=== PATIENT | male | born 1930 | race African-American/Black ===

== ENCOUNTER 2016-07-12 22:53 | Inpatient (IN) | payer OTHER, BC ==
--- NOTE | 2016-07-13 01:39 | PDOC ---
History of Present Illness - History of Present Illness Initial Comments: 07/13/16 01:58 The patient is an 85 year old male with a past medical hx of CVA, anemia, HTN, who presents to the ED via EMS from [facility] for evaluation of lab variance this evening. Per EMS, patient has a creatinine level of 2.98, and BUN level of 50. The patient states he has no pain and no complaints at this time. The patient denies any chest pain, SOB The patient denies any fever, chills The patient denies any dysuria, frequency The patient denies any nausea, vomiting Social: Lives at [facility] Allergies: Penicillin Surgical: None reported PCP: Dr. Pa <Loretta Carolina - Last Filed: 07/13/16 01:58> <Zakiya Joseph - Last Filed: 07/13/16 03:38> - General Chief Complaint: Revisit, Lab Variance Stated Complaint: ABNORMAL LABS Time Seen by Provider: 07/13/16 00:47 Past History <Loretta Carolina - Last Filed: 07/13/16 01:58> - Past Medical History Anemia: Yes CVA: Yes HTN: Yes Other medical history: PVD - Psycho/Social/Smoking Cessation Hx Suicidal Ideation: No Smoking History: Unknown if ever smoked Hx Alcohol Use: No Drug/Substance Use Hx: No <Zakiya Joseph - Last Filed: 07/13/16 03:38> - Past Medical History Allergies/Adverse Reactions: Allergies Allergy/AdvReac Type Severity Reaction Status Date / Time Penicillins Allergy Verified 07/12/16 22:59 Review of Systems - Review of Systems Able to Perform ROS?: Yes Comments:: 07/13/16 01:59 CONSTITUTIONAL: Absent: fever, chills, diaphoresis, generalized weakness, malaise, loss of appetite HEENT: Absent: rhinorrhea, nasal congestion, throat pain, throat swelling, difficulty swallowing, mouth swelling, ear pain, eye pain, visual Changes CARDIOVASCULAR: Absent: chest pain, syncope, palpitations, irregular heart rate, lightheadedness , peripheral edema RESPIRATORY: Absent: cough, shortness of breath, dyspnea with exertion, orthopnea, wheezing, stridor, hemoptysis GASTROINTESTINAL: Absent: abdominal pain, abdominal distension, nausea, vomiting, diarrhea, constipation, melena, hematochezia GENITOURINARY: Absent: dysuria, frequency, urgency, hesitancy, hematuria, flank pain, genital pain MUSCULOSKELETAL: Absent: myalgia, arthralgia, joint swelling SKIN: Absent: rash, itching, pallor HEMATOLOGIC/IMMUNOLOGIC: Absent: easy bleeding, easy bruising, lymphadenopathy, frequent infections ENDOCRINE: Absent: unexplained weight gain, unexplained weight loss, heat intolerance, cold intolerance NEUROLOGIC: Absent: headache, focal weakness or paresthesias, dizziness, unsteady gait, seizure, mental status changes, bladder or bowel incontinence PSYCHIATRIC: Absent: anxiety, depression, suicidal or homicidal ideation, hallucinations. <GeLoretta - Last Filed: 07/13/16 01:58> *Physical Exam - Vital Signs Last Vital Signs Temp Pulse Resp BP Pulse Ox 98 F 78 18 141/63 98 07/12/16 23:00 07/12/16 23:00 07/12/16 23:00 07/12/16 23:00 07/12/16 23:00 - Physical Exam Comments: 07/13/16 01:59 GENERAL: +Conversant, awake, alert. Well developed, well nourished. No acute distress. HEENT: Normocephalic, atraumatic. PERRLA, EOMI. No conjunctival pallor. Sclera are non- icteric. Moist mucous membranes. Oropharynx is clear. NECK: Supple. Full ROM. No JVD. Carotid pulses 2+ and symmetric, without bruits. No thyromegaly. No lymphadenopathy. CARDIOVASCULAR: Regular rate and rhythm. No murmurs, rubs, or gallops. Distal pulses are 2+ and symmetric. PULMONARY: No evidence of respiratory distress. Lungs clear to auscultation bilaterally. No wheezing, rales or rhonchi. ABDOMINAL: +Protuberant abdomen. Soft. Non-tender. No rebound or guarding. No organomegaly. Normoactive bowel sounds. MUSCULOSKELETAL Normal range of motion at all joints. No bony deformities or tenderness. No CVA tenderness. EXTREMITIES: +No pitting edema. No cyanosis. No clubbing. No calf tenderness. SKIN: Warm and dry. Normal capillary refill. No rashes. No jaundice. NEUROLOGICAL: Alert, awake, appropriate. Cranial nerves 2-12 intact. No deficits to light touch and temperature in face, upper extremities and lower extremities. No motor deficits in the in face, upper extremities and lower extremities. Normoreflexic in the upper and lower extremities. Normal speech. PSYCHIATRIC: Cooperative. Good eye contact. Appropriate mood and affect. <Loretta Carolina - Last Filed: 07/13/16 01:58> - Vital Signs Last Vital Signs Temp Pulse Resp BP Pulse Ox 98 F 78 18 141/63 98 07/12/16 23:00 07/12/16 23:00 07/12/16 23:00 07/12/16 23:00 07/12/16 23:00 <Zakiya Joseph - Last Filed: 07/13/16 03:38> ED Treatment Course - LABORATORY CBC & Chemistry Diagram: 07/13/16 01:50 07/13/16 01:50 <Zakiya Joseph - Last Filed: 07/13/16 03:38> Medical Decision Making - Medical Decision Making 07/13/16 01:37 85 year-old male brought in by ambulance to the [facility] for elevated BUN/ creatinine. Patient is resident of [facility] Past medical history significant for cerebral infarction, dehydration, hypernatremia, anemia, hypertension, gout, peripheral vascular disease. Review of the [facility] papers revealed a creatinine of 2.98 and Bun of 50 07/13/16 03:37 Lab work hospital did show creatinine of about 3 to be 150. CBC was unremarkable. Electrolytes were unremarkable Saroj discussed with Dr. Kayleen Chou and pt will admitted the patient to [facility] [place] <Zakiya Joseph - Last Filed: 07/13/16 03:38> *DC/Admit/Observation/Transfer - Attestations Scribe Attestion: 07/13/16 01:59 Documentation prepared by Loretta Carolina, acting as medical management specialist for Zakiya Joseph MD/DO. <Loretta Carolina - Last Filed: 07/13/16 01:58> - Discharge Dispostion Admit: Yes <Zakiya Joseph - Last Filed: 07/13/16 03:38> Diagnosis at time of Disposition: Acute renal failure Qualifiers: Acute renal failure type: unspecified Qualified Code(s): N17.9 - Acute kidney failure, unspecified - Referrals Referrals: Alfonso Pa MD [Primary Care Provider] -
[2016-07-13 02:06] LABS: BASOPHIL 0.9 % (0-2.0); EOSINOPHIL 6.1 % (0-4.5); MCH 31.8 pg (25.7-33.7); MCHC 33.1 g/dl (32.0-35.9); MEAN CELL VOLUME 96.2 fl (80-96); MEAN PLT VOLUME 7.8 fl (7.5-11.1); NEUTROPHILS 69.4 % (42.8-82.8); PLATELET COUNT 353 K/MM3 (134-434); RDW 17.9 % (11.9-15.9); WHITE BLOOD COUNT 7.4 K/mm3 (4.0-10.0)
[2016-07-13 02:17] LABS: INR 1.22 (0.82-1.09); PROTHROMBIN TIME (PATIENT) 13.5 SEC (9.98-11.88)
[2016-07-13 02:20] LABS: ACTIVATED PTT 34.5 SECONDS (26.9-34.4)
[2016-07-13 02:28] LABS: ALBUMIN 3.6 g/dl (3.4-5.0)
[2016-07-13 02:31] LABS: BILIRUBIN,TOTAL 0.4 mg/dL (0.2-1.0); CREATININE 3.6 mg/dL (0.7-1.3); TOT PROT 6.8 g/dl (6.4-8.2)
[2016-07-13] MEDS ORDERED: ACETAMINOPHEN 325 MG TABLET (FP) PO PRN (07:13)
[2016-07-13 08:41] VITALS: BMI 24.7
--- NOTE | 2016-07-13 09:17 | HP ---
Admitting History and Physical - Primary Care Physician PCP: Kayleen Chou - Admission Chief Complaint: ACUTE RENAL FAILURE History of Present Illness: SENT FROM [facility] FOR ELEVATED RENAL FUNCTION/LETHARGY History Source: Patient, Medical Record - Past Medical History Cardiovascular: Yes: HTN - Smoking History Smoking history: Unknown if ever smoked - Alcohol/Substance Use Hx Alcohol Use: No Home Medications - Allergies Allergies/Adverse Reactions: Allergies Allergy/AdvReac Type Severity Reaction Status Date / Time Penicillins Allergy Verified 07/12/16 22:59 - Home Medications Home Medications: Ambulatory Orders Amlodipine Besylate [Norvasc -] 10 mg PO DAILY 07/13/16 Aspirin [ASA -] 81 mg PO DAILY 07/13/16 Atorvastatin Ca [Lipitor] 20 mg PO HS 07/13/16 Clopidogrel Bisulfate [Plavix -] 75 mg PO DAILY 07/13/16 Febuxostat [Uloric -] 40 mg PO DAILY 07/13/16 Furosemide [Lasix -] 40 mg PO BID 07/13/16 Sennosides [Cristel-Bruno] 8.6 mg PO BID 07/13/16 Review of Systems - Review of Systems Constitutional: reports: No Symptoms Eyes: reports: No Symptoms HENT: reports: No Symptoms Neck: reports: No Symptoms Cardiovascular: reports: No Symptoms Respiratory: reports: No Symptoms Gastrointestinal: reports: No Symptoms Genitourinary: reports: No Symptoms Breasts: reports: No Symptoms Reported Musculoskeletal: reports: No Symptoms Integumentary: reports: No Symptoms Neurological: reports: No Symptoms Endocrine: reports: No Symptoms Hematology/Lymphatic: reports: No Symptoms Psychiatric: reports: No Symptoms Physical Examination Vital Signs: Vital Signs Temperature 97.2 F L 07/13/16 08:19 Pulse Rate 87 07/13/16 08:19 Respiratory Rate 20 07/13/16 08:19 Blood Pressure 142/75 07/13/16 08:19 O2 Sat by Pulse Oximetry (%) 98 07/13/16 06:14 Findings/Remarks: AWAKE ALERT DENIES ANY COMPLAINTS Constitutional: Yes: No Distress Eyes: Yes: WNL HENT: Yes: WNL Neck: Yes: WNL Cardiovascular: Yes: WNL Respiratory: Yes: WNL Gastrointestinal: Yes: WNL Renal/: Yes: WNL Musculoskeletal: Yes: Muscle Weakness Extremities: Yes: WNL Edema: No Peripheral Pulses WNL: Yes Integumentary: Yes: WNL Wound/Incision: Yes: Clean/Dry Neurological: Yes: Other ...Motor Strength: LLE, RLE Psychiatric: Yes: WNL Imaging - Results Chest X-ray: Report Reviewed Problem List - Problems (1) Acute renal failure Code(s): N17.9 - ACUTE KIDNEY FAILURE, UNSPECIFIED Qualifiers: Acute renal failure type: unspecified Qualified Code(s): N17.9 - Acute kidney failure, unspecified Assessment/Plan RENAL AND BLADDER SONO ORDERED CHECK URINE ANALYSIS/CX/SPOT RENAL AND EVAL CHECK VACCINES GIVEN AT [facility] DVT PROPHYLAXIS
[2016-07-13 10:11] LABS: CALCIUM 10.5 mg/dL (8.5-10.1); CREATININE 3.4 mg/dL (0.7-1.3)
[2016-07-13] MEDS: FEBUXOSTAT 40 MG TAB PO SCH (10:35)
[2016-07-13] MEDS: CLOPIDOGREL BISULFATE 75 MG TABLET (FP) PO SCH (10:35)
[2016-07-13] MEDS: ASPIRIN COATED 81 MG TABLET.EC PO SCH (10:35)
[2016-07-13] MEDS: amLODIPine BESYLATE 5 MG TABLET (FP) PO SCH (10:35)
[2016-07-13] MEDS ORDERED: PNEUMOC 13-VAL CONJ-DIP CRM/PF 0.5 ML DISP.SYRIN IM ONE (11:00)
[2016-07-13 13:27] LABS: URINE APPEARANCE CLEAR; URINE BILIRUBIN NEGATIVE (NEGATIVE); URINE BLOOD NEGATIVE (NEGATIVE); URINE COLOR LTYELLOW; URINE GLUCOSE (UA) NEGATIVE (NEGATIVE); URINE KETONE NEGATIVE (NEGATIVE); URINE LEUK ESTERASE NEGATIVE (NEGATIVE); URINE NITRITE NEGATIVE (NEGATIVE); URINE UROBILINOGEN NEGATIVE E.U./dl (0.2-1.0)
[2016-07-13 13:36] LABS: URINE PROTEIN 1+ (NEGATIVE)
[2016-07-13 13:40] LABS: URINE HYALINE CAST 3 /lpf; URINE MUCUS RARE; URINE RBC <1 /hpf (0-3); URINE WBC <1 /hpf (3-5)
[2016-07-13] MEDS: DEXTROSE 5%-NORMAL SALINE 1,000 ML IV SCH (14:37)
--- NOTE | 2016-07-13 16:04 | EKG ---
Test Reason : Blood Pressure : / mmHG Vent. Rate : 084 BPM Atrial Rate : 084 BPM P-R Int : 202 ms QRS Dur : 080 ms QT Int : 380 ms P-R-T Axes : 023 -24 035 degrees QTc Int : 449 ms NORMAL SINUS RHYTHM NORMAL ECG NO PREVIOUS ECGS AVAILABLE Confirmed by NIKHIL JARVIS, BLACK ([id number]) on 07/13/2016 4:03:55 PM Referred By: Confirmed By:BLACK TEJEDA MD
--- NOTE | 2016-07-13 18:06 | CONSULT ---
Consult Consult Specialty:: Nephrology Reason for Consultation:: elevated creatinine - History of Present Illness Chief Complaint: sent in for lethargy and abnormal labs History of Present Illness: Pt is an 85 year old male with pmhx of CVA, HTN and anemia who was sent in from the [place] for abnormal labs and lethargy. He was found to have a creatinine of about 3 in the [place]. I was called to evaluate him for renal failure. He is a poor historian and did not give much history. He is awake and appears comfortable. He denies history of kidney disease. He had a [place]ton placed and is making urine. 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 Cardio/Vascular: Yes: HTN Heme/Onc: Yes: Anemia - Alcohol/Substance Use Hx Alcohol Use: No - Smoking History Smoking history: Unknown if ever smoked Home Medications - Allergies Allergies/Adverse Reactions: Allergies Allergy/AdvReac Type Severity Reaction Status Date / Time Penicillins Allergy Verified 07/12/16 22:59 - Home Medications Home Medications: Ambulatory Orders Amlodipine Besylate [Norvasc -] 10 mg PO DAILY 07/13/16 Aspirin [ASA -] 81 mg PO DAILY 07/13/16 Atorvastatin Ca [Lipitor] 20 mg PO HS 07/13/16 Clopidogrel Bisulfate [Plavix -] 75 mg PO DAILY 07/13/16 Febuxostat [Uloric -] 40 mg PO DAILY 07/13/16 Furosemide [Lasix -] 40 mg PO BID 07/13/16 Sennosides [Cristel-Bruno] 8.6 mg PO BID 07/13/16 Family Disease History - Family Disease History Family History: Unable to Obtain Review of Systems Unable to obtain ROS, reason: pt says no to everything - Review of Systems Constitutional: reports: Malaise HENT: reports: No Symptoms Neck: reports: No Symptoms Cardiovascular: reports: No Symptoms Genitourinary: reports: No Symptoms Musculoskeletal: reports: No Symptoms Endocrine: reports: No Symptoms Physical Exam Vital Signs: Vital Signs Temperature 98.5 F 07/13/16 15:18 Pulse Rate 82 07/13/16 15:18 Respiratory Rate 20 07/13/16 08:19 Blood Pressure 142/75 07/13/16 08:19 O2 Sat by Pulse Oximetry (%) 98 07/13/16 08:50 Constitutional: Yes: Calm Eyes: Yes: Conjunctiva Clear HENT: Yes: Atraumatic Neck: Yes: Supple Cardiovascular: Yes: S1, S2 Respiratory: Yes: CTA Bilaterally Gastrointestinal: Yes: Soft Renal/: Yes: [place] Present Musculoskeletal: Yes: Muscle Weakness Edema: No Neurological: Yes: Pre-Existing Deficit Labs: CBC, BMP 07/13/16 09:30 Laboratory Tests 07/13/16 07/13/16 07/13/16 01:50 01:50 09:30 WBC 7.4 Hgb 11.8 Plt Count 353 Sodium 137 Potassium 4.7 Chloride 100 Carbon Dioxide 27 Anion Gap 10 BUN 54 H 54 H Creatinine 3.6 H 3.4 H Urine Color Urine Appearance Urine pH Ur Specific [place] Urine Protein Urine Glucose (UA) Urine Ketones Urine Blood Urine Nitrite Urine Bilirubin Urine Urobilinogen Ur Leukocyte Esterase Urine RBC 07/13/16 12:00 WBC Hgb Plt Count Sodium Potassium Chloride Carbon Dioxide Anion Gap BUN Creatinine Urine Color Ltyellow Urine Appearance Clear Urine pH 5.0 Ur Specific [place] 1.012 Urine Protein 1+ H Urine Glucose (UA) Negative Urine Ketones Negative Urine Blood Negative Urine Nitrite Negative Urine Bilirubin Negative Urine Urobilinogen Negative Ur Leukocyte Esterase Negative Urine RBC <1 Imaging - Results Chest X-ray: Report Reviewed Ultrasound: Report Reviewed (mildly atrophic kidneys with a large left renal cyst) Problem List - Problems (1) Acute renal failure Code(s): N17.9 - ACUTE KIDNEY FAILURE, UNSPECIFIED Qualifiers: Acute renal failure type: unspecified Qualified Code(s): N17.9 - Acute kidney failure, unspecified (2) CKD (chronic kidney disease) Code(s): N18.9 - CHRONIC KIDNEY DISEASE, UNSPECIFIED (3) HTN (hypertension) Code(s): I10 - ESSENTIAL (PRIMARY) HYPERTENSION (4) CVA (cerebral vascular accident) Code(s): I63.9 - CEREBRAL INFARCTION, UNSPECIFIED Assessment/Plan Current Medications Generic Name Dose Route Start Last Admin Trade Name Freq PRN Reason Stop Dose Admin Acetaminophen 650 mg 07/13/16 07:13 Tylenol - PO Q6H PRN FEVER OR PAIN Amlodipine Besylate 5 mg 07/13/16 10:00 07/13/16 10:35 Norvasc - PO 5 mg DAILY JANA Administration Aspirin 81 mg 07/13/16 10:00 07/13/16 10:35 Ecotrin - PO 81 mg DAILY JANA Administration Atorvastatin Calcium 20 mg 07/13/16 22:00 Lipitor - PO HS JANA Clopidogrel Bisulfate 75 mg 07/13/16 10:00 07/13/16 10:35 Plavix - PO 75 mg DAILY JANA Administration Febuxostat 40 mg 07/13/16 10:00 07/13/16 10:35 Uloric - PO 40 mg DAILY JANA Administration Dextrose/Sodium Chloride 1,000 mls @ 83 mls/hr 07/13/16 14:30 07/13/16 14:37 D5-Ns - IV 83 mls/hr ASDIR JANA Administration Impression 1. PIEDAD 2. likely CKD 3. HTN 4. CVA 5. hyperlipidemia 6. renal cyst Plan - gentle hydration - repeat labs in am - renal ultrasound reviewed - renal cyst will need follow up - hold lasix for now - pt has a FENa of 0.42 percent with urine sodium of 27. Low Fena is consistent with pre-renal disease - will need CKD workup, whch can be done as outpt - will follow
[2016-07-13] MEDS: ATORVASTATIN CA 20 MG TABLET (FP) PO SCH (21:30)
[2016-07-14] MEDS: DEXTROSE 5%-NORMAL SALINE 1,000 ML IV SCH ×3 (02:51→16:23)
[2016-07-14 07:48] LABS: MCH 33.1 pg (25.7-33.7); MCHC 34.1 g/dl (32.0-35.9); MEAN PLT VOLUME 7.9 fl (7.5-11.1); PLATELET COUNT 309 K/MM3 (134-434)
[2016-07-14 08:13] LABS: ALBUMIN 3.4 g/dl (3.4-5.0); BILIRUBIN,TOTAL 0.4 mg/dL (0.2-1.0); CREATININE 2.8 mg/dL (0.7-1.3); TOT PROT 6.7 g/dl (6.4-8.2)
--- NOTE | 2016-07-14 08:19 | CONSULT ---
Consult Consult Specialty:: urology Referred by:: Reason for Consultation:: urinary retention and renal failure - History of Present Illness Chief Complaint: urinary retention and renal failure History of Present Illness: Patient is an 85 year old [place] resident who was noted to have increased BUN/Cr levels. Patient denies difficulty voiding or previous urologic surgery. Patient is a poor historian. Medical records and caregivers consulted and reviewed. 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 Cardio/Vascular: Yes: HTN - Alcohol/Substance Use Hx Alcohol Use: No - Smoking History Smoking history: Unknown if ever smoked Home Medications - Allergies Allergies/Adverse Reactions: Allergies Allergy/AdvReac Type Severity Reaction Status Date / Time Penicillins Allergy Verified 07/12/16 22:59 - Home Medications Home Medications: Ambulatory Orders Amlodipine Besylate [Norvasc -] 10 mg PO DAILY 07/13/16 Aspirin [ASA -] 81 mg PO DAILY 07/13/16 Atorvastatin Ca [Lipitor] 20 mg PO HS 07/13/16 Clopidogrel Bisulfate [Plavix -] 75 mg PO DAILY 07/13/16 Febuxostat [Uloric -] 40 mg PO DAILY 07/13/16 Furosemide [Lasix -] 40 mg PO BID 07/13/16 Sennosides [Cristel-Bruno] 8.6 mg PO BID 07/13/16 Physical Exam- Vital Signs: Vital Signs Temperature 97.8 F 07/14/16 06:00 Pulse Rate 79 07/14/16 06:00 Respiratory Rate 20 07/14/16 06:00 Blood Pressure 128/77 07/14/16 06:00 O2 Sat by Pulse Oximetry (%) 98 07/13/16 21:00 Constitutional: Yes: Well Nourished, No Distress, Calm Eyes: Yes: WNL, Conjunctiva Clear, EOM Intact HENT: Yes: WNL, Atraumatic, Normocephalic Neck: Yes: WNL, Supple, Trachea Midline Cardiovascular: Yes: Regular Rate and Rhythm Respiratory: Yes: WNL, Regular Gastrointestinal: Yes: WNL, Normal Bowel Sounds, Soft Renal/: Yes: WNL Kidneys: Yes: WNL Pelvis: Yes: Bladder Non Palpable Testicles: Yes: WNL Scrotum: Yes: WNL Penis: Yes: WNL Prostate Exam: Yes: Smooth (2+ prostate), Symmetrical Labs: CBC, BMP 07/14/16 06:35 Imaging - Results Ultrasound: Report Reviewed Assessment/Plan Imp acute renal failure bph with incontinence plan patient at this time has no evidence of urinary retention. I would continue observation and increase hydration. Follow-up bladder sono would be indicated if there is exacerbation of renal function.
[2016-07-14] MEDS ORDERED: PT OWN MED DRAWER 7, Y5N ONE (10:10)
[2016-07-14] MEDS: amLODIPine BESYLATE 5 MG TABLET (FP) PO SCH (10:11)
[2016-07-14] MEDS: ASPIRIN COATED 81 MG TABLET.EC PO SCH (10:11)
[2016-07-14] MEDS: CLOPIDOGREL BISULFATE 75 MG TABLET (FP) PO SCH (10:11)
[2016-07-14] MEDS: FEBUXOSTAT 40 MG TAB PO SCH (10:11)
--- NOTE | 2016-07-14 10:44 | PN ---
Progress Note, Physician Chief Complaint: AWAKE ALERT X 2 NAD DENIES CHEST PAIN NO SOB - Current Medication List Current Medications: Active Medications Acetaminophen (Tylenol -) 650 mg PO Q6H PRN PRN Reason: FEVER OR PAIN Amlodipine Besylate (Norvasc -) 5 mg PO DAILY [facility] Last Admin: 07/14/16 10:11 Dose: 5 mg Aspirin (Ecotrin -) 81 mg PO DAILY [facility] Last Admin: 07/14/16 10:11 Dose: 81 mg Atorvastatin Calcium (Lipitor -) 20 mg PO HS [facility] Last Admin: 07/13/16 21:30 Dose: 20 mg Clopidogrel Bisulfate (Plavix -) 75 mg PO DAILY [facility] Last Admin: 07/14/16 10:11 Dose: 75 mg Febuxostat (Uloric -) 40 mg PO DAILY [facility] Last Admin: 07/14/16 10:11 Dose: 40 mg Dextrose/Sodium Chloride (D5-Ns -) 1,000 mls @ 83 mls/hr IV ASDIR [facility] Last Admin: 07/14/16 02:51 Dose: 83 mls/hr - Objective Vital Signs: Vital Signs Temperature 97.8 F 07/14/16 06:00 Pulse Rate 79 07/14/16 06:00 Respiratory Rate 20 07/14/16 06:00 Blood Pressure 128/77 07/14/16 06:00 O2 Sat by Pulse Oximetry (%) 98 07/13/16 21:00 Constitutional: Yes: No Distress Eyes: Yes: WNL HENT: Yes: WNL, Other Cardiovascular: Yes: WNL Respiratory: Yes: WNL Gastrointestinal: Yes: WNL Genitourinary: Yes: WNL Musculoskeletal: Yes: Muscle Weakness Extremities: Yes: WNL Edema: No Peripheral Pulses WNL: Yes Integumentary: Yes: Rash Wound/Incision: Yes: Dressing Dry and Intact (HEEL PADS) Neurological: Yes: Pre-Existing Deficit ...Motor Strength: LLE, RLE Psychiatric: Yes: Other Labs: CBC, BMP 07/14/16 06:35 07/14/16 06:35 INR, PTT INR 1.22 (0.82-1.09) H 07/13/16 01:50 Problem List - Problems (1) Acute renal failure Code(s): N17.9 - ACUTE KIDNEY FAILURE, UNSPECIFIED Qualifiers: Acute renal failure type: unspecified Qualified Code(s): N17.9 - Acute kidney failure, unspecified Assessment/Plan RENAL AND BLADDER SONO ORDERED IVF CHECK URINE ANALYSIS/CX/SPOT RENAL AND EVAL CHECK VACCINES GIVEN AT [facility] DVT PROPHYLAXIS
--- NOTE | 2016-07-14 17:12 | PN ---
Progress Note, Physician History of Present Illness: Pt seen and examined at bedside. He is more awake and interactive than he was yesterday. - Current Medication List Current Medications: Active Medications Acetaminophen (Tylenol -) 650 mg PO Q6H PRN PRN Reason: FEVER OR PAIN Amlodipine Besylate (Norvasc -) 5 mg PO DAILY [facility] Last Admin: 07/14/16 10:11 Dose: 5 mg Aspirin (Ecotrin -) 81 mg PO DAILY [facility] Last Admin: 07/14/16 10:11 Dose: 81 mg Atorvastatin Calcium (Lipitor -) 20 mg PO HS [facility] Last Admin: 07/13/16 21:30 Dose: 20 mg Clopidogrel Bisulfate (Plavix -) 75 mg PO DAILY [facility] Last Admin: 07/14/16 10:11 Dose: 75 mg Febuxostat (Uloric -) 40 mg PO DAILY [facility] Last Admin: 07/14/16 10:11 Dose: 40 mg Dextrose/Sodium Chloride (D5-Ns -) 1,000 mls @ 83 mls/hr IV ASDIR [facility] Last Admin: 07/14/16 16:23 Dose: 83 mls/hr - Objective Vital Signs: Vital Signs Temperature 98.2 F 07/14/16 13:46 Pulse Rate 81 07/14/16 13:46 Respiratory Rate 20 07/14/16 08:00 Blood Pressure 120/61 07/14/16 13:46 O2 Sat by Pulse Oximetry (%) 98 07/14/16 08:00 Constitutional: Yes: Calm Eyes: Yes: Conjunctiva Clear HENT: Yes: Atraumatic Neck: Yes: Supple Cardiovascular: Yes: S1, S2 Respiratory: Yes: WNL Gastrointestinal: Yes: WNL Genitourinary: Yes: WNL Musculoskeletal: Yes: WNL Edema: No Neurological: Yes: Oriented Psychiatric: Yes: Oriented Labs: CBC, BMP 07/14/16 06:35 07/14/16 06:35 INR, PTT INR 1.22 (0.82-1.09) H 07/13/16 01:50 Problem List - Problems (1) Acute renal failure Code(s): N17.9 - ACUTE KIDNEY FAILURE, UNSPECIFIED Qualifiers: Acute renal failure type: unspecified Qualified Code(s): N17.9 - Acute kidney failure, unspecified (2) CKD (chronic kidney disease) Code(s): N18.9 - CHRONIC KIDNEY DISEASE, UNSPECIFIED (3) HTN (hypertension) Code(s): I10 - ESSENTIAL (PRIMARY) HYPERTENSION (4) CVA (cerebral vascular accident) Code(s): I63.9 - CEREBRAL INFARCTION, UNSPECIFIED Assessment/Plan Current Medications Generic Name Dose Route Start Last Admin Trade Name Freq PRN Reason Stop Dose Admin Acetaminophen 650 mg 07/13/16 07:13 Tylenol - PO Q6H PRN FEVER OR PAIN Amlodipine Besylate 5 mg 07/13/16 10:00 07/14/16 10:11 Norvasc - PO 5 mg DAILY JANA Administration Aspirin 81 mg 07/13/16 10:00 07/14/16 10:11 Ecotrin - PO 81 mg DAILY JANA Administration Atorvastatin Calcium 20 mg 07/13/16 22:00 07/13/16 21:30 Lipitor - PO 20 mg HS JANA Administration Clopidogrel Bisulfate 75 mg 07/13/16 10:00 07/14/16 10:11 Plavix - PO 75 mg DAILY JANA Administration Febuxostat 40 mg 07/13/16 10:00 07/14/16 10:11 Uloric - PO 40 mg DAILY JANA Administration Dextrose/Sodium Chloride 1,000 mls @ 83 mls/hr 07/13/16 14:30 07/14/16 16:23 D5-Ns - IV 83 mls/hr ASDIR JANA Administration Impression 1. PIEDAD 2. likely CKD 3. HTN 4. CVA 5. hyperlipidemia 6. renal cyst Plan - renal function is improving - [place] is removed and pt is voiding - cont with fluids - urology input appreciated - renal cyst will need follow up - hold lasix for now - will need CKD workup, whch can be done as outpt - will follow
[2016-07-14] MEDS: ATORVASTATIN CA 20 MG TABLET (FP) PO SCH (21:36)
[2016-07-15 08:59] LABS: CALCIUM 9.6 mg/dL (8.5-10.1)
[2016-07-15 09:00] LABS: CREATININE 2.8 mg/dL (0.7-1.3)
[2016-07-15] MEDS: FEBUXOSTAT 40 MG TAB PO SCH (10:54)
[2016-07-15] MEDS: CLOPIDOGREL BISULFATE 75 MG TABLET (FP) PO SCH (10:54)
[2016-07-15] MEDS: ASPIRIN COATED 81 MG TABLET.EC PO SCH (10:54)
[2016-07-15] MEDS: amLODIPine BESYLATE 5 MG TABLET (FP) PO SCH (10:54)
--- NOTE | 2016-07-15 10:56 | PN ---
Progress Note, Physician - Current Medication List Current Medications: Active Medications Acetaminophen (Tylenol -) 650 mg PO Q6H PRN PRN Reason: FEVER OR PAIN Amlodipine Besylate (Norvasc -) 5 mg PO DAILY [facility] Last Admin: 07/15/16 10:54 Dose: 5 mg Aspirin (Ecotrin -) 81 mg PO DAILY [facility] Last Admin: 07/15/16 10:54 Dose: 81 mg Atorvastatin Calcium (Lipitor -) 20 mg PO HS [facility] Last Admin: 07/14/16 21:36 Dose: 20 mg Clopidogrel Bisulfate (Plavix -) 75 mg PO DAILY [facility] Last Admin: 07/15/16 10:54 Dose: 75 mg Febuxostat (Uloric -) 40 mg PO DAILY [facility] Last Admin: 07/15/16 10:54 Dose: 40 mg Dextrose/Sodium Chloride (D5-Ns -) 1,000 mls @ 83 mls/hr IV ASDIR [facility] Last Admin: 07/14/16 16:23 Dose: 83 mls/hr - Objective Vital Signs: Vital Signs Temperature 98.1 F 07/15/16 08:00 Pulse Rate 78 07/15/16 08:00 Respiratory Rate 20 07/15/16 08:00 Blood Pressure 128/58 07/15/16 08:00 O2 Sat by Pulse Oximetry (%) 97 07/14/16 21:00 Labs: CBC, BMP 07/14/16 06:35 07/15/16 07:00 INR, PTT INR 1.22 (0.82-1.09) H 07/13/16 01:50 Problem List - Problems (1) Acute renal failure Code(s): N17.9 - ACUTE KIDNEY FAILURE, UNSPECIFIED Qualifiers: Acute renal failure type: unspecified Qualified Code(s): N17.9 - Acute kidney failure, unspecified (2) HTN (hypertension) Code(s): I10 - ESSENTIAL (PRIMARY) HYPERTENSION (3) Renal cyst Code(s): N28.1 - CYST OF KIDNEY, ACQUIRED Assessment/Plan (1) Acute renal failure Code(s): N17.9 - ACUTE KIDNEY FAILURE, UNSPECIFIED Qualifiers: Acute renal failure type: unspecified Qualified Code(s): N17.9 - Acute kidney failure, unspecified Assessment/Plan RENAL AND BLADDER SONO ORDERED -> L RENAL 9cm CYST NEEDS OUTPT RENAL & URO W/U & F/U CHECK URINE ANALYSIS/CX/SPOT RENAL AND EVAL APPRECIATED CHECK VACCINES GIVEN AT [facility] DVT PROPHYLAXIS PASTOR CARDENAS
--- NOTE | 2016-07-15 12:11 | DS ---
Physical Examination Vital Signs: Vital Signs Temperature 98.1 F 07/15/16 08:00 Pulse Rate 78 07/15/16 08:00 Respiratory Rate 20 07/15/16 08:00 Blood Pressure 128/58 07/15/16 08:00 O2 Sat by Pulse Oximetry (%) 97 07/14/16 21:00 Findings/Remarks: HAD D/W FAMILY -> WILL SIGN HCP FORMS AT SNF CONCERNED ABOUT AC & HCTZ Constitutional: Yes: Calm Cardiovascular: Yes: Regular Rate and Rhythm, S1, S2 Respiratory: Yes: CTA Bilaterally Gastrointestinal: Yes: Normal Bowel Sounds, Soft Edema: No Labs: CBC, BMP 07/14/16 06:35 07/15/16 07:00 Discharge Summary Reason For Visit: ACUTE RENAL FAILURE Current Active Problems Acute renal failure (Acute) CKD (chronic kidney disease) (Acute) CVA (cerebral vascular accident) (Acute) HTN (hypertension) (Acute) Renal cyst (Acute) Hospital Course: (1) Acute renal failure Code(s): N17.9 - ACUTE KIDNEY FAILURE, UNSPECIFIED Qualifiers: Acute renal failure type: unspecified Qualified Code(s): N17.9 - Acute kidney failure, unspecified (2) HTN (hypertension) Code(s): I10 - ESSENTIAL (PRIMARY) HYPERTENSION (3) Renal cyst Code(s): N28.1 - CYST OF KIDNEY, ACQUIRED Assessment/Plan (1) Acute renal failure Code(s): N17.9 - ACUTE KIDNEY FAILURE, UNSPECIFIED Qualifiers: Acute renal failure type: unspecified Qualified Code(s): N17.9 - Acute kidney failure, unspecified Assessment/Plan RENAL AND BLADDER SONO ORDERED -> L RENAL 9cm CYST NEEDS OUTPT RENAL & URO W/U & F/U CHECK URINE ANALYSIS/CX/SPOT RENAL AND EVAL APPRECIATED CHECK VACCINES GIVEN AT [facility] DVT PROPHYLAXIS H/O DVT & WAS ON PRADAXA? DISCHARGE TO SNF [facility] Condition: Stable - Instructions Referrals: Alfonso Pa MD [Primary Care Provider] - Disposition: NURSING HOME FACILITY - Home Medications Comprehensive Discharge Medication List: Ambulatory Orders Amlodipine Besylate [Norvasc -] 10 mg PO DAILY 07/13/16 Aspirin [ASA -] 81 mg PO DAILY 07/13/16 Atorvastatin Ca [Lipitor] 20 mg PO HS 07/13/16 Clopidogrel Bisulfate [Plavix -] 75 mg PO DAILY 07/13/16 Febuxostat [Uloric -] 40 mg PO DAILY 07/13/16 Furosemide [Lasix -] 40 mg PO BID 07/13/16 Sennosides [Cristel-Bruno] 8.6 mg PO BID 07/13/16
--- NOTE | 2016-07-15 12:50 | PN ---
Progress Note, Physician History of Present Illness: Pt seen and examined at bedside. He is more awake and alert today. Family are at bedside and care was discussed with them. - Current Medication List Current Medications: Active Medications Acetaminophen (Tylenol -) 650 mg PO Q6H PRN PRN Reason: FEVER OR PAIN Amlodipine Besylate (Norvasc -) 5 mg PO DAILY [facility] Last Admin: 07/15/16 10:54 Dose: 5 mg Aspirin (Ecotrin -) 81 mg PO DAILY [facility] Last Admin: 07/15/16 10:54 Dose: 81 mg Atorvastatin Calcium (Lipitor -) 20 mg PO HS [facility] Last Admin: 07/14/16 21:36 Dose: 20 mg Clopidogrel Bisulfate (Plavix -) 75 mg PO DAILY [facility] Last Admin: 07/15/16 10:54 Dose: 75 mg Febuxostat (Uloric -) 40 mg PO DAILY [facility] Last Admin: 07/15/16 10:54 Dose: 40 mg Dextrose/Sodium Chloride (D5-Ns -) 1,000 mls @ 83 mls/hr IV ASDIR [facility] Last Admin: 07/14/16 16:23 Dose: 83 mls/hr Tamsulosin HCl (Flomax -) 0.4 mg PO DAILY@0830 [facility] - Objective Vital Signs: Vital Signs Temperature 98.1 F 07/15/16 08:00 Pulse Rate 78 07/15/16 08:00 Respiratory Rate 20 07/15/16 08:00 Blood Pressure 128/58 07/15/16 08:00 O2 Sat by Pulse Oximetry (%) 97 07/14/16 21:00 Constitutional: Yes: Calm Eyes: Yes: Conjunctiva Clear HENT: Yes: Atraumatic Cardiovascular: Yes: S1, S2 Respiratory: Yes: CTA Bilaterally Gastrointestinal: Yes: Soft Genitourinary: Yes: WNL Musculoskeletal: Yes: Muscle Weakness Edema: No Neurological: Yes: Oriented, Pre-Existing Deficit Labs: CBC, BMP 07/14/16 06:35 07/15/16 07:00 INR, PTT INR 1.22 (0.82-1.09) H 07/13/16 01:50 Problem List - Problems (1) Acute renal failure Code(s): N17.9 - ACUTE KIDNEY FAILURE, UNSPECIFIED Qualifiers: Acute renal failure type: unspecified Qualified Code(s): N17.9 - Acute kidney failure, unspecified (2) CKD (chronic kidney disease) Code(s): N18.9 - CHRONIC KIDNEY DISEASE, UNSPECIFIED (3) HTN (hypertension) Code(s): I10 - ESSENTIAL (PRIMARY) HYPERTENSION (4) CVA (cerebral vascular accident) Code(s): I63.9 - CEREBRAL INFARCTION, UNSPECIFIED Assessment/Plan Current Medications Generic Name Dose Route Start Last Admin Trade Name Freq PRN Reason Stop Dose Admin Acetaminophen 650 mg 07/13/16 07:13 Tylenol - PO Q6H PRN FEVER OR PAIN Amlodipine Besylate 5 mg 07/13/16 10:00 07/15/16 10:54 Norvasc - PO 5 mg DAILY JANA Administration Aspirin 81 mg 07/13/16 10:00 07/15/16 10:54 Ecotrin - PO 81 mg DAILY JANA Administration Atorvastatin Calcium 20 mg 07/13/16 22:00 07/14/16 21:36 Lipitor - PO 20 mg HS JANA Administration Clopidogrel Bisulfate 75 mg 07/13/16 10:00 07/15/16 10:54 Plavix - PO 75 mg DAILY JANA Administration Febuxostat 40 mg 07/13/16 10:00 07/15/16 10:54 Uloric - PO 40 mg DAILY JANA Administration Dextrose/Sodium Chloride 1,000 mls @ 83 mls/hr 07/13/16 14:30 07/14/16 16:23 D5-Ns - IV 83 mls/hr ASDIR JANA Administration Tamsulosin HCl 0.4 mg 07/16/16 08:30 Flomax - PO DAILY@0830 JANA Impression 1. PIEDAD 2. likely CKD 3. HTN 4. CVA 5. hyperlipidemia 6. renal cyst Plan - renal function is stabilizing - cont with fluids - discussed care with family, they say pt was not on lasix in the past - urology input appreciated - renal cyst will need follow up - would not restart lasix at this time however pts volume status will need to be followed closely - will need CKD workup, which can be done as outpt - will follow
[2016-07-15 14:28] VITALS: BP 137/65; PULSE 82; TEMP 98.5
[2016-07-15] MEDS: DEXTROSE 5%-NORMAL SALINE 1,000 ML IV SCH (15:14)
[2016-07-16] MEDS ORDERED: TAMSULOSIN HCL 0.4 MG CAP.ER.24H (FP) PO SCH (08:30)
== END 2016-07-15 18:19 | DRG 684 ==
LOC: JER 22:53 → JERBED 07-13 03:57 → J6S 07-13 07:45
PROVIDERS: ADMIT Family Medicine; ATTEND Family Medicine
DX: N17.9 Acute kidney failure, unspecified (principal); I12.9 Hypertensive chronic kidney disease with stage 1 through stage 4 chronic kidney disease, or unspecified chronic kidney disease; N18.9 Chronic kidney disease, unspecified; R33.8 Other retention of urine; N40.0 Benign prostatic hyperplasia without lower urinary tract symptoms; E78.5 Hyperlipidemia, unspecified; N28.1 Cyst of kidney, acquired; Z86.73 Personal history of transient ischemic attack (TIA), and cerebral infarction without residual deficits
CPT/HCPCS: 36415; 71010-TC; 76775-TC; 76856-TC; 80048; 80053; 81003; 81015; 82570; 83880; 84153; 84300; 84550; 85025; 85027; 85610; 85730; 93005; 93010; 93306-TC; 97116-GP; 97163-GP; 99281-25

== ENCOUNTER 2016-08-12 18:05 | Inpatient (IN) | payer OTHER, BC ==
[2016-08-12 18:13] VITALS: BMI 21.0
--- NOTE | 2016-08-12 19:17 | PDOC ---
History of Present Illness - General Chief Complaint: Weakness Stated Complaint: FAILURE TO THRIVE Time Seen by Provider: 08/12/16 19:16 - History of Present Illness Initial Comments: 08/12/16 19:48 Mr. Ahmadi is an 85 y/o male with a PMH of CVA, acute renal failure, HTN, CKD, hyperlipidemia, presents to the ER today from his longterm unsure of why he is here. Pt. is a poor historian and appears to be AOx2, did not realize he was in the hospital until told. Report from the longterm states that the patient is having new rolling of his mouth and tongue, and is having increasing weakness/failure to thrive. Pt. has no specific complaints at this time. Pt. was admitted to this facility on 07/13/16 for new acute renal failure. He was discharged on 07/15/16. GENERAL/CONSTITUTIONAL: No fever or chills. No weakness. No weight change. HEAD, EYES, EARS, NOSE AND THROAT: No change in vision. No ear pain or discharge. No sore throat. CARDIOVASCULAR: No chest pain or palpitations. RESPIRATORY: No cough, wheezing, or shortness of breath. GASTROINTESTINAL: No nausea, vomiting, diarrhea or constipation. GENITOURINARY: No dysuria, frequency, or change in urination. MUSCULOSKELETAL: No joint or muscle swelling or pain. No neck or back pain. SKIN: No rash or easy bruising. NEUROLOGIC: No headache, vertigo, loss of consciousness, or loss of sensation. PSYCHIATRIC: No depression or anxiety. ENDOCRINE: No increased thirst. No abnormal weight change. HEMATOLOGIC/LYMPHATIC: No anemia, easy bleeding, or history of blood clots. ALLERGIC/IMMUNOLOGIC: No hives or skin allergy. No latex allergy. Past History - Past Medical History Allergies/Adverse Reactions: Allergies Allergy/AdvReac Type Severity Reaction Status Date / Time Penicillins Allergy Verified 08/12/16 18:09 Home Medications: Ambulatory Orders Acetaminophen 650 mg PO Q6H PRN 08/12/16 Albuterol Sulfate 0.5% [Ventolin 0.5% -] 1 neb IH Q4H 08/12/16 Amlodipine Besylate [Norvasc -] 5 mg PO DAILY 08/12/16 Aspirin [ASA -] 81 mg PO DAILY 08/12/16 Atorvastatin Ca [Lipitor] 20 mg PO HS 08/12/16 Clopidogrel Bisulfate [Plavix -] 75 mg PO DAILY 08/12/16 Febuxostat [Uloric -] 40 mg PO DAILY 08/12/16 Guaifenesin 100 mg PO Q4H PRN 08/12/16 Guaifenesin [Guaifenesin ER] 600 mg PO Q12H 08/12/16 Lactose-Reduced Food [Ensure Plus] 237 ml PO TID 08/12/16 Levofloxacin [Levaquin] 500 mg PO DAILY 08/12/16 Loratadine 10 mg PO DAILY 08/12/16 Tamsulosin HCl [Flomax] 0.4 mg PO DAILY 08/12/16 Anemia: Yes CVA: Yes HTN: Yes - Psycho/Social/Smoking Cessation Hx Suicidal Ideation: No Smoking History: Unknown if ever smoked Hx Alcohol Use: No Drug/Substance Use Hx: No *Physical Exam - Vital Signs Last Vital Signs Temp Pulse Resp BP Pulse Ox 98.6 F 97 H 18 125/58 97 08/12/16 18:07 08/12/16 18:07 08/12/16 18:07 08/12/16 18:07 08/12/16 18:07 - Physical Exam Comments: 08/12/16 19:54 GENERAL: The patient is awake, AOx1 to person. Does not know location or time. Pt. is in no acute distress, laying in hospital bed breathing easily HEAD: Normal with no signs of trauma. ENT: Pt. has thrush of his tongue and pharynx. Appears to be missing dentures. Pupils equal, round and reactive to light, extraocular movements intact, sclera anicteric, conjunctiva clear. Neck supple. LUNGS: Diffuse bilateral rales. Normal excursion. No respiratory distress or use of accessory muscles. CV: RRR, S1/S2, no MRG. Cap refill < 2 sec. ABDOMEN: Soft, non-distended, non-tender normoactive bowel soundsx4 quadrants. EXTREMITIES: Normal range of motion, no edema. NEUROLOGICAL: Speech is difficult to understand, however, pt is missing dentures. Normal speech, normal gait. CN II-XII grossly intact. PSYCH: Normal mood, normal affect. SKIN: Warm, dry, normal turgor, no rashes or lesions noted. 08/12/16 23:43 ED Treatment Course - LABORATORY CBC & Chemistry Diagram: 08/12/16 20:17 08/12/16 21:35 Medical Decision Making - Medical Decision Making 08/12/16 19:57 Mr. Ahmadi is an 85 y/o male with a complex medical history. Pt. is a poor historian and is unsure as to why he is here. Given his lack of orientation, will do a full work up to determine if this is his baseline. Will consider Parkinson's as the mouth and tongue rolling are new according to the longterm. Will also r/o ACS, infection, pneumonia, and kidney function. Less likely CVA given no focal neurological deficits. Basic labs, CBC, CMP, UA for infection/kidney function Cardiac panel and EKG, CXR Non-contrast CT to evaluate for neurological changes. Will re-evaluate. 08/12/16 21:09 CMP, Cardiac panel, BMP samples hemolyzed in the lab. Ordered redraw. 08/12/16 22:[address] shows moderate atrophy. focal old infarct in the left periventricular white matter likely extending to the left basal ganglia as well as likely old cortical infarct in the right basal ganglia. Otherwise no gross acute infarct or intracranial hemorrhage is seen. Correlate clinically to determine further evaluation. 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 Chest x-ray shows no significant interval change or acute lung disease. EKG shows a normal sinus rhythm with a rate of 80 bpm. No acute ischemic changes noted. 08/12/16 23:44 CMP, Troponin, and BNP back at this time. Elevated BUN/Creatinine 71/3.4, 33/2.8 at 07/15/16 Troponin: 0.70 BNP:563 AST:200 ALT:324 Will gently hydrate at this time. CT abdomen and RUQ US ordered at this time to look for cause of elevated liver enzymes. [facility] 08/13/16 03:[address] abdomen show non-obstructing gall stones. No other acute pathology is noted. *DC/Admit/Observation/Transfer Diagnosis at time of Disposition: Troponin level elevated, Multiple gallstones Acute renal failure Qualifiers: Acute renal failure type: unspecified Qualified Code(s): N17.9 - Acute kidney failure, unspecified - Discharge Dispostion Condition at time of disposition: Guarded Admit: Yes - Referrals
[2016-08-12 20:28] LABS: BASOPHIL 0.3 % (0-2.0); EOSINOPHIL 1.2 % (0-4.5); MCH 32.2 pg (25.7-33.7); MCHC 33.1 g/dl (32.0-35.9); MEAN CELL VOLUME 97.2 fl (80-96); MEAN PLT VOLUME 8.5 fl (7.5-11.1); NEUTROPHILS 60.6 % (42.8-82.8); PLATELET COUNT 218 K/MM3 (134-434); RDW 16.8 % (11.9-15.9); WHITE BLOOD COUNT 3.3 K/mm3 (4.0-10.0)
[2016-08-12 22:53] LABS: ALBUMIN 2.9 g/dl (3.4-5.0); BILIRUBIN,TOTAL 0.3 mg/dL (0.2-1.0); CALCIUM 9.2 mg/dL (8.5-10.1); CREATININE 3.4 mg/dL (0.7-1.3); TOT PROT 6.3 g/dl (6.4-8.2)
[2016-08-12 23:16] LABS: TROPONIN I 0.7 ng/ml (0.00-0.05)
[2016-08-12] MEDS ORDERED: SODIUM CHLORIDE 0.9% 500 ML INFUS.BAG IV ONE (23:27)
[2016-08-13] MEDS ORDERED: ACETAMINOPHEN 325 MG TABLET (FP) PO PRN (03:27)
[2016-08-13] MEDS ORDERED: PATIENT'S OWN MEDICATION (NON-FORMULARY) (Lactose-Reduced Food [Ensure Plus] 237 ML) PO SCH (06:00)
[2016-08-13 07:31] LABS: BASOPHIL 0.5 % (0-2.0); EOSINOPHIL 1.9 % (0-4.5); MCH 32.8 pg (25.7-33.7); MCHC 33.8 g/dl (32.0-35.9); NEUTROPHILS 56.1 % (42.8-82.8); PLATELET COUNT 187 K/MM3 (134-434); RDW 16.9 % (11.9-15.9); WHITE BLOOD COUNT 3.9 K/mm3 (4.0-10.0)
[2016-08-13 07:49] LABS: ALBUMIN 2.7 g/dl (3.4-5.0); CALCIUM 8.7 mg/dL (8.5-10.1)
[2016-08-13 08:05] LABS: BILIRUBIN,TOTAL 0.3 mg/dL (0.2-1.0); CREATININE 3.2 mg/dL (0.7-1.3)
--- NOTE | 2016-08-13 08:32 | CON.CARD ---
Consult Consult Specialty:: Cardiology Referred by:: Dr. Pa Reason for Consultation:: Elevated troponin - History of Present Illness History of Present Illness: 85 yo male with CVA, CKD, HTN, hyperlipidemia, who was recently hospitalized at [facility] from 07/13 - 07/15/16 for acute on chronic renal failure (Cr 3.6 on admission, Cr 2.8 on discharge). He is now admitted from halfway for reported "new rolling of mouth and tongue" and reported "weakness/failure to thrive" however, patient denies any complaints at this time. Denies chest pain or dyspnea. However, patient was again found to be in acute renal failure with Cr 3.4. Cardiology consult was request for elevated troponin of 0.7. ECG demonstrated sinus rhythm without ischemic changes or evidence of infarct. 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 Cardio/Vascular: Yes: HTN Renal/: Yes: Renal Failure (CKD) - Alcohol/Substance Use Hx Alcohol Use: No History of Substance Use: reports: None - Smoking History Smoking history: Former smoker Home Medications - Allergies Allergies/Adverse Reactions: Allergies Allergy/AdvReac Type Severity Reaction Status Date / Time Penicillins Allergy Verified 08/12/16 18:09 - Home Medications Home Medications: Ambulatory Orders Acetaminophen 650 mg PO Q6H PRN 08/12/16 Albuterol Sulfate 0.5% [Ventolin 0.5% -] 1 neb IH Q4H 08/12/16 Amlodipine Besylate [Norvasc -] 5 mg PO DAILY 08/12/16 Aspirin [ASA -] 81 mg PO DAILY 08/12/16 Atorvastatin Ca [Lipitor] 20 mg PO HS 08/12/16 Clopidogrel Bisulfate [Plavix -] 75 mg PO DAILY 08/12/16 Febuxostat [Uloric -] 40 mg PO DAILY 08/12/16 Guaifenesin 100 mg PO Q4H PRN 08/12/16 Guaifenesin [Guaifenesin ER] 600 mg PO Q12H 08/12/16 Lactose-Reduced Food [Ensure Plus] 237 ml PO TID 08/12/16 Levofloxacin [Levaquin] 500 mg PO DAILY 08/12/16 Loratadine 10 mg PO DAILY 08/12/16 Tamsulosin HCl [Flomax] 0.4 mg PO DAILY 08/12/16 Family Disease History - Family Disease History Family History: Unremarkable (for premature CAD or sudden cardiac ) Review of Systems - Review of Systems Constitutional: reports: No Symptoms Eyes: reports: No Symptoms HENT: reports: No Symptoms Neck: reports: No Symptoms Cardiovascular: reports: No Symptoms Respiratory: reports: No Symptoms Gastrointestinal: reports: No Symptoms Vital Signs: Vital Signs Temperature 98.2 F 08/13/16 05:05 Pulse Rate 82 08/13/16 05:05 Respiratory Rate 18 08/13/16 05:05 Blood Pressure 137/67 08/13/16 05:05 O2 Sat by Pulse Oximetry (%) 94 L 08/13/16 05:05 Constitutional: Yes: No Distress Eyes: Yes: Conjunctiva Clear, EOM Intact HENT: Yes: Atraumatic, Normocephalic Respiratory: Yes: CTA Bilaterally Gastrointestinal: Yes: Normal Bowel Sounds, Soft. No: Tenderness JVD: No Carotid Bruit: No PMI: Non-Displaced Heart Sounds: Yes: S1, S2 Murmur: No: Systolic Murmur Edema: No Neurological: Yes: Alert, Oriented Psychiatric: Yes: WNL - Other Data Labs, Other Data: CBC, BMP 08/13/16 06:00 08/12/16 ECG: Sinus rhythm Echo: Report Reviewed (07/14/16: Normal LV size and systolic function. Mod TR. RVSP 30-40 mmHg. Mild VA. Trivial pericardial effusion of no hemodynamic significance.) Imaging - Results Chest X-ray: Report Reviewed (No acute pulmonary process.), Image Reviewed Cat Scan: Report Reviewed (08/12/[address]: Old infarct of left periventricular white matter extending into left basal ganglia. Old infarct in righ basal ganglia. No acute infarct.) Assessment/Plan 85 yo male with CVA, CKD, HTN, hyperlipidemia. Admitted with acute on chronic renal failure. Cardiology consult was request for elevated troponin of 0.7. ECG demonstrated sinus rhythm without ischemic changes of evidence of infarct. No clinical evidence to suggest ACS/DE. Elevated troponin likely due to renal failure. Trops 0.7 -> 0.6 (today). RECS: Given absence of symptoms to suggest ACS/DE, absence of ECG changes, and no evidence of CHF, no further cardiac work-up or intervention is clinically indicated as troponin elevation is due to renal failure. Continue aspirin, clopidogrel, and statin given patient's prior CVA Will see as needed. Call with questions.
[2016-08-13 08:50] LABS: TROPONIN I 0.6 ng/ml (0.00-0.05)
[2016-08-13] MEDS ORDERED: PT OWN MED DRAWER 7, Y5N ONE ×2 (09:49→19:30)
[2016-08-13] MEDS: LORATADINE 10 MG TABLET PO SCH (09:54)
[2016-08-13] MEDS: TAMSULOSIN HCL 0.4 MG CAP.ER.24H (FP) PO SCH (09:54)
[2016-08-13] MEDS: CLOPIDOGREL BISULFATE 75 MG TABLET (FP) PO SCH (09:54)
[2016-08-13] MEDS: amLODIPine BESYLATE 5 MG TABLET (FP) PO SCH (09:54)
[2016-08-13] MEDS: FEBUXOSTAT 40 MG TAB PO SCH (09:55)
[2016-08-13] MEDS: ASPIRIN 81 MG CHEWABLE TABLETS PO SCH (09:55)
--- NOTE | 2016-08-13 10:52 | HP ---
Admitting History and Physical - Primary Care Physician PCP: ESTHER TUBBS PATIENT - Admission Chief Complaint: ARF. 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 Cardiovascular: Yes: HTN Renal/: Yes: Renal Failure (CKD) Heme/Onc: Yes: Anemia - Smoking History Smoking history: Former smoker - Alcohol/Substance Use Hx Alcohol Use: No History of Substance Use: reports: None Home Medications - Allergies Allergies/Adverse Reactions: Allergies Allergy/AdvReac Type Severity Reaction Status Date / Time Penicillins Allergy Verified 08/12/16 18:09 - Home Medications Home Medications: Ambulatory Orders Acetaminophen 650 mg PO Q6H PRN 08/12/16 Albuterol Sulfate 0.5% [Ventolin 0.5% -] 1 neb IH Q4H 08/12/16 Amlodipine Besylate [Norvasc -] 5 mg PO DAILY 08/12/16 Aspirin [ASA -] 81 mg PO DAILY 08/12/16 Atorvastatin Ca [Lipitor] 20 mg PO HS 08/12/16 Clopidogrel Bisulfate [Plavix -] 75 mg PO DAILY 08/12/16 Febuxostat [Uloric -] 40 mg PO DAILY 08/12/16 Guaifenesin 100 mg PO Q4H PRN 08/12/16 Guaifenesin [Guaifenesin ER] 600 mg PO Q12H 08/12/16 Lactose-Reduced Food [Ensure Plus] 237 ml PO TID 08/12/16 Levofloxacin [Levaquin] 500 mg PO DAILY 08/12/16 Loratadine 10 mg PO DAILY 08/12/16 Tamsulosin HCl [Flomax] 0.4 mg PO DAILY 08/12/16 Review of Systems Findings/Remarks: POOR HISTORIAN Physical Examination Vital Signs: Vital Signs Temperature 98.2 F 08/13/16 05:05 Pulse Rate 82 08/13/16 05:05 Respiratory Rate 18 08/13/16 05:05 Blood Pressure 137/67 08/13/16 05:05 O2 Sat by Pulse Oximetry (%) 94 L 08/13/16 05:05 Constitutional: Yes: Calm Cardiovascular: Yes: Regular Rate and Rhythm, S1, S2 Respiratory: Yes: CTA Bilaterally Gastrointestinal: Yes: Normal Bowel Sounds, Soft Edema: No Neurological: Yes: Alert. No: Oriented Labs: CBC, BMP 08/13/16 06:00 08/13/16 06:00 Imaging - Results Chest X-ray: Report Reviewed Cat Scan: Report Reviewed Ultrasound: Report Reviewed Problem List - Problems (1) Acute renal failure Code(s): N17.9 - ACUTE KIDNEY FAILURE, UNSPECIFIED Qualifiers: Acute renal failure type: unspecified Qualified Code(s): N17.9 - Acute kidney failure, unspecified (2) CKD (chronic kidney disease) Code(s): N18.9 - CHRONIC KIDNEY DISEASE, UNSPECIFIED (3) Gallstones Code(s): K80.20 - CALCULUS OF GALLBLADDER W/O CHOLECYSTITIS W/O OBSTRUCTION (4) HTN (hypertension) Code(s): I10 - ESSENTIAL (PRIMARY) HYPERTENSION (5) Troponin level elevated Code(s): R79.89 - OTHER SPECIFIED ABNORMAL FINDINGS OF BLOOD CHEMISTRY (6) H/O: CVA (cerebrovascular accident) Code(s): Z86.73 - PRSNL HX OF TIA (TIA), AND CEREB INFRC W/O RESID DEFICITS (7) Weakness Code(s): R53.1 - WEAKNESS (8) Altered mental state Code(s): R41.82 - ALTERED MENTAL STATUS, UNSPECIFIED Assessment/Plan Mr. Ahmadi is an 85 y/o male with a PMH of CVA, acute renal failure, HTN, CKD, hyperlipidemia, presents to the ER today from his skilled nursing unsure of why he is here. PtRomero is a poor historian and appears to be AOx2, did not realize he was in the hospital until told. Report from the skilled nursing states that the patient is having new rolling of his mouth and tongue, and is having increasing weakness/failure to thrive. Pt. has no specific complaints at this time. PtRomero was admitted to this facility on 07/13/16 for new acute renal failure. He was discharged on 07/15/16. (1) Acute renal failure Code(s): N17.9 - ACUTE KIDNEY FAILURE, UNSPECIFIED Qualifiers: Acute renal failure type: unspecified Qualified Code(s): N17.9 - Acute kidney failure, unspecified Cr 3.4 -> 3.2 RENAL CONSULTED (2) CKD (chronic kidney disease) Code(s): N18.9 - CHRONIC KIDNEY DISEASE, UNSPECIFIED (3) Gallstones Code(s): K80.20 - CALCULUS OF GALLBLADDER W/O CHOLECYSTITIS W/O OBSTRUCTION + FATTY LIVER NEW HEPATITIS GI CONSULTED (4) HTN (hypertension) Code(s): I10 - ESSENTIAL (PRIMARY) HYPERTENSION ACCEPTABLE CONTROL (5) Troponin level elevated Code(s): R79.89 - OTHER SPECIFIED ABNORMAL FINDINGS OF BLOOD CHEMISTRY TRENDING DOWN APPRECIATE CARDIO CONSULT LOW SUSPICION OF ACS INCed TROP LIKELY 2/2 ARF (6) H/O: CVA (cerebrovascular accident) Code(s): Z86.73 - PRSNL HX OF TIA (TIA), AND CEREB INFRC W/O RESID DEFICITS CTB SHOWS OLD INFARACT NEURO CONSULTED (7) Weakness Code(s): R53.1 - WEAKNESS R/O PNA ID CONSULTED (8) Altered mental state Code(s): R41.82 - ALTERED MENTAL STATUS, UNSPECIFIED APPRECIATE ED NOTE -> Will consider Parkinson's as the mouth and tongue rolling are new according to the skilled nursing NEURO CONSULTED R/O PARKINSONS 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
--- NOTE | 2016-08-13 12:57 | CON.PULM ---
Consult Consult Specialty:: PULM/CCM Referred by:: RASHEL Reason for Consultation:: Abnromal CXR / ARF - History of Present Illness Chief Complaint: Weakness History of Present Illness: 85 M, CVA, acute renal failure, HTN, CKD, and hyperlipidemia. Admitted via the ER due to possible rolling of his mouth and tongue and increasing weakness/failure to thrive. Patient is awake and interactive but not able to provide a history. No CP or SOB. 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 Cardio/Vascular: Yes: HTN Renal/: Yes: Renal Failure (CKD) - Alcohol/Substance Use Hx Alcohol Use: No History of Substance Use: reports: None - Smoking History Smoking history: Former smoker Home Medications - Allergies Allergies/Adverse Reactions: Allergies Allergy/AdvReac Type Severity Reaction Status Date / Time Penicillins Allergy Verified 08/12/16 18:09 - Home Medications Home Medications: Ambulatory Orders Acetaminophen 650 mg PO Q6H PRN 08/12/16 Albuterol Sulfate 0.5% [Ventolin 0.5% -] 1 neb IH Q4H 08/12/16 Amlodipine Besylate [Norvasc -] 5 mg PO DAILY 08/12/16 Aspirin [ASA -] 81 mg PO DAILY 08/12/16 Atorvastatin Ca [Lipitor] 20 mg PO HS 08/12/16 Clopidogrel Bisulfate [Plavix -] 75 mg PO DAILY 08/12/16 Febuxostat [Uloric -] 40 mg PO DAILY 08/12/16 Guaifenesin 100 mg PO Q4H PRN 08/12/16 Guaifenesin [Guaifenesin ER] 600 mg PO Q12H 08/12/16 Lactose-Reduced Food [Ensure Plus] 237 ml PO TID 08/12/16 Levofloxacin [Levaquin] 500 mg PO DAILY 08/12/16 Loratadine 10 mg PO DAILY 08/12/16 Tamsulosin HCl [Flomax] 0.4 mg PO DAILY 08/12/16 Review of Systems - Review of Systems Constitutional: reports: Malaise, Weakness. denies: Chills, Fever, Night Sweats Eyes: reports: No Symptoms HENT: reports: No Symptoms Neck: reports: No Symptoms Cardiovascular: reports: No Symptoms Respiratory: reports: No Symptoms. denies: Cough, Hemoptysis, SOB, Wheezing Gastrointestinal: reports: No Symptoms Genitourinary: reports: No Symptoms Breasts: reports: No Symptoms Reported Musculoskeletal: reports: No Symptoms Integumentary: reports: No Symptoms Neurological: reports: No Symptoms Endocrine: reports: No Symptoms Hematology/Lymphatic: reports: No Symptoms Psychiatric: reports: No Symptoms Physical Exam Vital Sings: Vital Signs Temperature 98.2 F 08/13/16 05:05 Pulse Rate 84 08/13/16 10:00 Respiratory Rate 18 08/13/16 10:00 Blood Pressure 123/65 08/13/16 10:00 O2 Sat by Pulse Oximetry (%) 85 L 08/13/16 10:00 Constitutional: Yes: No Distress, Thin Eyes: Yes: Conjunctiva Clear, EOM Intact HENT: Yes: Atraumatic, Normocephalic Neck: Yes: Supple, Trachea Midline Cardiovascular: Yes: Regular Rate and Rhythm Respiratory: Yes: CTA Bilaterally, On Nasal O2. No: Cough, Rales, Rhonchi, SOB , Stridor, Tachypnea, Wheezes ...Inspection: Yes: WNL ...Clubbing: No Gastrointestinal: Yes: Normal Bowel Sounds, Soft Musculoskeletal: Yes: WNL Extremities: Yes: WNL Edema: No Peripheral Pulses WNL: Yes Integumentary: Yes: WNL Neurological: Yes: Alert Psychiatric: Yes: Alert Labs: CBC, BMP 08/13/16 06:00 08/13/16 06:00 Imaging - Results Chest X-ray: Report Reviewed, Image Reviewed (Non-specific increased markings - > Likely chronic changes) Problem List - Problems (1) Acute renal failure Code(s): N17.9 - ACUTE KIDNEY FAILURE, UNSPECIFIED Qualifiers: Acute renal failure type: unspecified Qualified Code(s): N17.9 - Acute kidney failure, unspecified (2) Altered mental state Code(s): R41.82 - ALTERED MENTAL STATUS, UNSPECIFIED (3) H/O: CVA (cerebrovascular accident) Code(s): Z86.73 - PRSNL HX OF TIA (TIA), AND CEREB INFRC W/O RESID DEFICITS (4) Troponin level elevated Code(s): R79.89 - OTHER SPECIFIED ABNORMAL FINDINGS OF BLOOD CHEMISTRY (5) Weakness Code(s): R53.1 - WEAKNESS (6) CKD (chronic kidney disease) Code(s): N18.9 - CHRONIC KIDNEY DISEASE, UNSPECIFIED (7) CVA (cerebral vascular accident) Code(s): I63.9 - CEREBRAL INFARCTION, UNSPECIFIED (8) HTN (hypertension) Code(s): I10 - ESSENTIAL (PRIMARY) HYPERTENSION Assessment/Plan PLAN: IVF O2 as needed Nutritional support No further chest imaging suggested Aspiration precautions Consider Palliative care evaluation Thank you. Dr Flores
[2016-08-13 12:59] LABS: TROPONIN I 0.59 ng/ml (0.00-0.05)
[2016-08-13 16:06] LABS: URINE APPEARANCE CLEAR; URINE BILIRUBIN NEGATIVE (NEGATIVE); URINE BLOOD NEGATIVE (NEGATIVE); URINE COLOR LTYELLOW; URINE GLUCOSE (UA) NEGATIVE (NEGATIVE); URINE KETONE NEGATIVE (NEGATIVE); URINE NITRITE NEGATIVE (NEGATIVE); URINE UROBILINOGEN NEGATIVE E.U./dl (0.2-1.0)
[2016-08-13 16:14] LABS: URINE LEUK ESTERASE TRACE (NEGATIVE); URINE PROTEIN 2+ (NEGATIVE)
[2016-08-13 16:15] LABS: URINE HYALINE CAST 1 /lpf; URINE MUCUS RARE; URINE RBC 1 /hpf (0-3); URINE WBC 4 /hpf (3-5)
--- NOTE | 2016-08-13 17:57 | EKG ---
Test Reason : Blood Pressure : / mmHG Vent. Rate : 080 BPM Atrial Rate : 080 BPM P-R Int : 170 ms QRS Dur : 078 ms QT Int : 406 ms P-R-T Axes : 011 -23 013 degrees QTc Int : 468 ms NORMAL SINUS RHYTHM NORMAL ECG WHEN COMPARED WITH ECG OF 13-JUL-2016 04:11, NO SIGNIFICANT CHANGE WAS FOUND Confirmed by SHELDON LOWE MD ([id number]) on 08/13/2016 5:57:15 PM Referred By: Confirmed By:SHELDON LOWE MD
--- NOTE | 2016-08-13 19:43 | CONSULT ---
Consult Consult Specialty:: Nephrology Reason for Consultation:: CKD with acute component - History of Present Illness Chief Complaint: sent in for failure to thrive History of Present Illness: Pt is an 85 year old male with pmhx of CKD, PIEDAD, CVA, PIEDAD, HTN, and hyperlipidemia who was sent in to the ER from the [place] for failure to thrive and rolling mouth movements. He is awake and able to answer simple questions. He is known to me from prior admission. His renal function is worse than when he was last discharged. He denies dysuria or hematuria. He denies shortness of breath or chest pain. 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 Cardio/Vascular: Yes: HTN, Hyperlipdemia Renal/: Yes: Renal Failure (CKD), Renal Inusuff Rheumatology: Yes: Gout - Alcohol/Substance Use Hx Alcohol Use: No History of Substance Use: reports: None - Smoking History Smoking history: Former smoker Home Medications - Allergies Allergies/Adverse Reactions: Allergies Allergy/AdvReac Type Severity Reaction Status Date / Time Penicillins Allergy Verified 08/12/16 18:09 - Home Medications Home Medications: Ambulatory Orders Acetaminophen 650 mg PO Q6H PRN 08/12/16 Albuterol Sulfate 0.5% [Ventolin 0.5% -] 1 neb IH Q4H 08/12/16 Amlodipine Besylate [Norvasc -] 5 mg PO DAILY 08/12/16 Aspirin [ASA -] 81 mg PO DAILY 08/12/16 Atorvastatin Ca [Lipitor] 20 mg PO HS 08/12/16 Clopidogrel Bisulfate [Plavix -] 75 mg PO DAILY 08/12/16 Febuxostat [Uloric -] 40 mg PO DAILY 08/12/16 Guaifenesin 100 mg PO Q4H PRN 08/12/16 Guaifenesin [Guaifenesin ER] 600 mg PO Q12H 08/12/16 Lactose-Reduced Food [Ensure Plus] 237 ml PO TID 08/12/16 Levofloxacin [Levaquin] 500 mg PO DAILY 08/12/16 Loratadine 10 mg PO DAILY 08/12/16 Tamsulosin HCl [Flomax] 0.4 mg PO DAILY 08/12/16 Family Disease History - Family Disease History Family History: Denies Review of Systems Findings/Remarks: pt is a poor historian - Review of Systems Constitutional: reports: No Symptoms Eyes: reports: No Symptoms HENT: reports: No Symptoms Neck: reports: No Symptoms Cardiovascular: reports: No Symptoms Respiratory: reports: No Symptoms Gastrointestinal: reports: No Symptoms Genitourinary: reports: No Symptoms Musculoskeletal: reports: No Symptoms Integumentary: reports: No Symptoms Neurological: reports: No Symptoms Endocrine: reports: No Symptoms Physical Exam Vital Signs: Vital Signs Temperature 99.1 F 08/13/16 18:00 Pulse Rate 79 08/13/16 18:00 Respiratory Rate 18 08/13/16 18:00 Blood Pressure 119/57 08/13/16 18:00 O2 Sat by Pulse Oximetry (%) 85 L 08/13/16 10:00 Constitutional: Yes: Calm Eyes: Yes: Conjunctiva Clear HENT: Yes: Atraumatic Cardiovascular: Yes: S1, S2 Respiratory: Yes: CTA Bilaterally Gastrointestinal: Yes: Soft Renal/: Yes: Incontinence Musculoskeletal: Yes: Muscle Weakness Edema: No Neurological: Yes: Oriented Labs: CBC, BMP 08/13/16 06:00 08/13/16 06:00 Laboratory Tests 07/13/16 07/13/16 07/14/16 01:50 09:30 06:35 Sodium Potassium Chloride Carbon Dioxide BUN Creatinine 3.6 H 3.4 H 2.8 H Troponin I Urine Color Urine Appearance Urine pH Urine Protein Urine Glucose (UA) Urine Ketones Urine Blood Urine Nitrite Urine Bilirubin 07/15/16 08/12/16 08/13/16 07:00 21:35 06:00 Sodium 143 Potassium 4.7 Chloride 109 H Carbon Dioxide 24 BUN 67 H Creatinine 2.8 H 3.4 H D 3.2 H Troponin I 0.70 H* 0.60 H Urine Color Urine Appearance Urine pH Urine Protein Urine Glucose (UA) Urine Ketones Urine Blood Urine Nitrite Urine Bilirubin 08/13/16 08/13/16 11:00 11:59 Sodium Potassium Chloride Carbon Dioxide BUN Creatinine Troponin I 0.59 H Urine Color Ltyellow Urine Appearance Clear Urine pH 6.0 Urine Protein 2+ H Urine Glucose (UA) Negative Urine Ketones Negative Urine Blood Negative Urine Nitrite Negative Urine Bilirubin Negative Imaging - Results Chest X-ray: Report Reviewed Cat Scan: Report Reviewed Problem List - Problems (1) Acute renal failure Code(s): N17.9 - ACUTE KIDNEY FAILURE, UNSPECIFIED Qualifiers: Acute renal failure type: unspecified Qualified Code(s): N17.9 - Acute kidney failure, unspecified (2) Altered mental state Code(s): R41.82 - ALTERED MENTAL STATUS, UNSPECIFIED (3) Gallstones Code(s): K80.20 - CALCULUS OF GALLBLADDER W/O CHOLECYSTITIS W/O OBSTRUCTION (4) H/O: CVA (cerebrovascular accident) Code(s): Z86.73 - PRSNL HX OF TIA (TIA), AND CEREB INFRC W/O RESID DEFICITS (5) Troponin level elevated Code(s): R79.89 - OTHER SPECIFIED ABNORMAL FINDINGS OF BLOOD CHEMISTRY (6) Weakness Code(s): R53.1 - WEAKNESS (7) CKD (chronic kidney disease) Code(s): N18.9 - CHRONIC KIDNEY DISEASE, UNSPECIFIED (8) CVA (cerebral vascular accident) Code(s): I63.9 - CEREBRAL INFARCTION, UNSPECIFIED (9) HTN (hypertension) Code(s): I10 - ESSENTIAL (PRIMARY) HYPERTENSION (10) Renal cyst Code(s): N28.1 - CYST OF KIDNEY, ACQUIRED Assessment/Plan Current Medications Generic Name Dose Route Start Last Admin Trade Name Freq PRN Reason Stop Dose Admin Acetaminophen 650 mg 08/13/16 03:27 Tylenol - PO Q6H PRN PAIN/FEVER Albuterol Sulfate 1 amp 08/13/16 03:27 Ventolin 0.5% - NEB Q4H PRN ASTHMA Amlodipine Besylate 5 mg 08/13/16 10:00 08/13/16 09:54 Norvasc - PO 5 mg DAILY JANA Administration Aspirin 81 mg 08/13/16 10:00 08/13/16 09:55 Asa - PO 81 mg DAILY JANA Administration Atorvastatin Calcium 20 mg 08/13/16 22:00 Lipitor - PO HS JANA Clopidogrel Bisulfate 75 mg 08/13/16 10:00 08/13/16 09:54 Plavix - PO 75 mg DAILY JANA Administration Febuxostat 40 mg 08/13/16 10:00 08/13/16 09:55 Uloric - PO Not Given DAILY JANA Loratadine 10 mg 08/13/16 10:00 08/13/16 09:54 Claritin - PO 10 mg DAILY JANA Administration Tamsulosin HCl 0.4 mg 08/13/16 08:30 08/13/16 09:54 Flomax - PO 0.4 mg DAILY@0830 JANA Administration chart reviewed labs reviewed meds reviewed Impression 1. PIEDAD 2. CKD 3. HTN 4. CVA 5. hyperlipidemia 6. renal cyst 7. gout 8. failure to thrive Plan - will start gentle hydration - repeat labs in am - will send prelim renal workup - cont current meds - nutritional support - will follow Dr Duke
[2016-08-13] MEDS ORDERED: SODIUM CHLORIDE 0.45% 1,000 ML IV SCH (20:00)
[2016-08-13] MEDS: ATORVASTATIN CA 20 MG TABLET (FP) PO SCH (21:14)
[2016-08-14 08:23] LABS: CALCIUM 8.9 mg/dL (8.5-10.1); CREATININE 2.7 mg/dL (0.7-1.3)
--- NOTE | 2016-08-14 08:53 | PN ---
Progress Note, Physician - Current Medication List Current Medications: Active Medications Acetaminophen (Tylenol -) 650 mg PO Q6H PRN PRN Reason: PAIN/FEVER Albuterol Sulfate (Ventolin 0.5% -) 1 amp NEB Q4H PRN PRN Reason: ASTHMA Amlodipine Besylate (Norvasc -) 5 mg PO DAILY [facility] Last Admin: 08/13/16 09:54 Dose: 5 mg Aspirin (Asa -) 81 mg PO DAILY [facility] Last Admin: 08/13/16 09:55 Dose: 81 mg Atorvastatin Calcium (Lipitor -) 20 mg PO HS [facility] Last Admin: 08/13/16 21:14 Dose: 20 mg Clopidogrel Bisulfate (Plavix -) 75 mg PO DAILY [facility] Last Admin: 08/13/16 09:54 Dose: 75 mg Febuxostat (Uloric -) 40 mg PO DAILY [facility] Last Admin: 08/13/16 09:55 Dose: Not Given Sodium Chloride (1/2 Normal Saline) 1,000 mls @ 50 mls/hr IV ASDIR [facility] Stop: 08/14/16 19:50 Last Admin: 08/13/16 21:13 Dose: 50 mls/hr Loratadine (Claritin -) 10 mg PO DAILY [facility] Last Admin: 08/13/16 09:54 Dose: 10 mg Tamsulosin HCl (Flomax -) 0.4 mg PO DAILY@0830 [facility] Last Admin: 08/13/16 09:54 Dose: 0.4 mg - Objective Vital Signs: Vital Signs Temperature 98.2 F 08/14/16 05:50 Pulse Rate 89 08/14/16 05:50 Respiratory Rate 16 08/14/16 05:50 Blood Pressure 123/61 08/14/16 05:50 O2 Sat by Pulse Oximetry (%) 94 L 08/13/16 22:00 Cardiovascular: Yes: WNL Respiratory: Yes: WNL Gastrointestinal: Yes: WNL Edema: No Labs: CBC, BMP 08/13/16 06:00 08/14/16 06:00 Problem List - Problems (1) Acute renal failure Code(s): N17.9 - ACUTE KIDNEY FAILURE, UNSPECIFIED Qualifiers: Acute renal failure type: unspecified Qualified Code(s): N17.9 - Acute kidney failure, unspecified (2) CKD (chronic kidney disease) Code(s): N18.9 - CHRONIC KIDNEY DISEASE, UNSPECIFIED (3) Gallstones Code(s): K80.20 - CALCULUS OF GALLBLADDER W/O CHOLECYSTITIS W/O OBSTRUCTION (4) HTN (hypertension) Code(s): I10 - ESSENTIAL (PRIMARY) HYPERTENSION (5) Troponin level elevated Code(s): R79.89 - OTHER SPECIFIED ABNORMAL FINDINGS OF BLOOD CHEMISTRY (6) H/O: CVA (cerebrovascular accident) Code(s): Z86.73 - PRSNL HX OF TIA (TIA), AND CEREB INFRC W/O RESID DEFICITS (7) Weakness Code(s): R53.1 - WEAKNESS (8) Altered mental state Code(s): R41.82 - ALTERED MENTAL STATUS, UNSPECIFIED Assessment/Plan Mr. Ahmadi is an 85 y/o male with a PMH of CVA, acute renal failure, HTN, CKD, hyperlipidemia, presents to the ER today from his assisted unsure of why he is here. Pt. is a poor historian and appears to be AOx2, did not realize he was in the hospital until told. Report from the assisted states that the patient is having new rolling of his mouth and tongue, and is having increasing weakness/failure to thrive. Pt. has no specific complaints at this time. Pt. was admitted to this facility on 07/13/16 for new acute renal failure. He was discharged on 07/15/16. (1) Acute renal failure Code(s): N17.9 - ACUTE KIDNEY FAILURE, UNSPECIFIED Qualifiers: Acute renal failure type: unspecified Qualified Code(s): N17.9 - Acute kidney failure, unspecified RENAL CONSULT APPRECIATED (2) CKD (chronic kidney disease) Code(s): N18.9 - CHRONIC KIDNEY DISEASE, UNSPECIFIED (3) Gallstones Code(s): K80.20 - CALCULUS OF GALLBLADDER W/O CHOLECYSTITIS W/O OBSTRUCTION + FATTY LIVER NEW HEPATITIS -> IMPROVED GI CONSULTED -> GI DR BENOIT TO F/U (4) HTN (hypertension) Code(s): I10 - ESSENTIAL (PRIMARY) HYPERTENSION ACCEPTABLE CONTROL (5) Troponin level elevated Code(s): R79.89 - OTHER SPECIFIED ABNORMAL FINDINGS OF BLOOD CHEMISTRY TRENDING DOWN APPRECIATE CARDIO CONSULT LOW SUSPICION OF ACS INCed TROP LIKELY 2/2 ARF (6) H/O: CVA (cerebrovascular accident) Code(s): Z86.73 - PRSNL HX OF TIA (TIA), AND CEREB INFRC W/O RESID DEFICITS CTB SHOWS OLD INFARACT NEURO CONSULTED (7) Weakness Code(s): R53.1 - WEAKNESS R/O PNA -> LOW SUSPICION ID CONSULTED APPRECIATE PULM CONSULT NO FEVER/WBC NEG (8) Altered mental state Code(s): R41.82 - ALTERED MENTAL STATUS, UNSPECIFIED APPRECIATE ED NOTE -> Will consider Parkinson's as the mouth and tongue rolling are new according to the assisted NEURO CONSULTED R/O [facility] F/U LABS [facility]
[2016-08-14] MEDS ORDERED: PT OWN MED DRAWER 7, Y5N ONE (10:15)
[2016-08-14] MEDS: CLOPIDOGREL BISULFATE 75 MG TABLET (FP) PO SCH (10:19)
[2016-08-14] MEDS: TAMSULOSIN HCL 0.4 MG CAP.ER.24H (FP) PO SCH (10:19)
[2016-08-14] MEDS: FEBUXOSTAT 40 MG TAB PO SCH (10:20)
[2016-08-14] MEDS: amLODIPine BESYLATE 5 MG TABLET (FP) PO SCH (10:20)
[2016-08-14] MEDS: LORATADINE 10 MG TABLET PO SCH (10:20)
[2016-08-14] MEDS: ASPIRIN 81 MG CHEWABLE TABLETS PO SCH (10:20)
[2016-08-14 11:35] LABS: URINE CREATININE 91.6 mg/dL
--- NOTE | 2016-08-14 13:00 | PN ---
Progress Note (short form) - Note Progress Note: No acute events overnight. Awake. NAD Intake & Output 08/11/16 08/12/16 08/13/16 08/14/16 23:59 23:59 23:59 23:59 Intake Total 930 500 Output Total 400 200 Balance 530 300 Weight 115 lb 115 lb Last Vital Signs Temp Pulse Resp BP Pulse Ox 98.2 F 89 16 123/61 94 L 08/14/16 05:50 08/14/16 05:50 08/14/16 05:50 08/14/16 05:50 08/13/16 22:00 Active Medications Acetaminophen (Tylenol -) 650 mg PO Q6H PRN PRN Reason: PAIN/FEVER Albuterol Sulfate (Ventolin 0.5% -) 1 amp NEB Q4H PRN PRN Reason: ASTHMA Amlodipine Besylate (Norvasc -) 5 mg PO DAILY [facility] Last Admin: 08/14/16 10:20 Dose: 5 mg Aspirin (Asa -) 81 mg PO DAILY [facility] Last Admin: 08/14/16 10:20 Dose: 81 mg Atorvastatin Calcium (Lipitor -) 20 mg PO HS [facility] Last Admin: 08/13/16 21:14 Dose: 20 mg Clopidogrel Bisulfate (Plavix -) 75 mg PO DAILY [facility] Last Admin: 08/14/16 10:19 Dose: 75 mg Febuxostat (Uloric -) 40 mg PO DAILY [facility] Last Admin: 08/14/16 10:20 Dose: 40 mg Sodium Chloride (1/2 Normal Saline) 1,000 mls @ 50 mls/hr IV ASDIR [facility] Stop: 08/14/16 19:50 Last Admin: 08/13/16 21:13 Dose: 50 mls/hr Loratadine (Claritin -) 10 mg PO DAILY [facility] Last Admin: 08/14/16 10:20 Dose: 10 mg Tamsulosin HCl (Flomax -) 0.4 mg PO DAILY@0830 [facility] Last Admin: 08/14/16 10:19 Dose: 0.4 mg Constitutional: Yes: No Distress, Thin Eyes: Yes: Conjunctiva Clear, EOM Intact HENT: Yes: Atraumatic, Normocephalic Neck: Yes: Supple, Trachea Midline Cardiovascular: Yes: Regular Rate and Rhythm Respiratory: Yes: CTA Bilaterally, On Nasal O2. No: Cough, Rales, Rhonchi, SOB , Stridor, Tachypnea, Wheezes ...Inspection: Yes: WNL ...Clubbing: No Gastrointestinal: Yes: Normal Bowel Sounds, Soft Musculoskeletal: Yes: WNL Extremities: Yes: WNL Edema: No Peripheral Pulses WNL: Yes Integumentary: Yes: WNL Neurological: Yes: Alert Psychiatric: Yes: Alert Labs: Problem List - Problems (1) Acute renal failure Code(s): N17.9 - ACUTE KIDNEY FAILURE, UNSPECIFIED Qualifiers: Acute renal failure type: unspecified Qualified Code(s): N17.9 - Acute kidney failure, unspecified (2) Altered mental state Code(s): R41.82 - ALTERED MENTAL STATUS, UNSPECIFIED (3) H/O: CVA (cerebrovascular accident) Code(s): Z86.73 - PRSNL HX OF TIA (TIA), AND CEREB INFRC W/O RESID DEFICITS (4) Troponin level elevated Code(s): R79.89 - OTHER SPECIFIED ABNORMAL FINDINGS OF BLOOD CHEMISTRY (5) Weakness Code(s): R53.1 - WEAKNESS (6) CKD (chronic kidney disease) Code(s): N18.9 - CHRONIC KIDNEY DISEASE, UNSPECIFIED (7) CVA (cerebral vascular accident) Code(s): I63.9 - CEREBRAL INFARCTION, UNSPECIFIED (8) HTN (hypertension) Code(s): I10 - ESSENTIAL (PRIMARY) HYPERTENSION Assessment/Plan IVF O2 as needed Nutritional support No further chest imaging suggested Aspiration precautions Consider Palliative care evaluation Dr Flores Problem List - Problems (1) Acute renal failure Code(s): N17.9 - ACUTE KIDNEY FAILURE, UNSPECIFIED Qualifiers: Acute renal failure type: unspecified Qualified Code(s): N17.9 - Acute kidney failure, unspecified (2) Altered mental state Code(s): R41.82 - ALTERED MENTAL STATUS, UNSPECIFIED (3) H/O: CVA (cerebrovascular accident) Code(s): Z86.73 - PRSNL HX OF TIA (TIA), AND CEREB INFRC W/O RESID DEFICITS (4) Troponin level elevated Code(s): R79.89 - OTHER SPECIFIED ABNORMAL FINDINGS OF BLOOD CHEMISTRY (5) Weakness Code(s): R53.1 - WEAKNESS (6) CKD (chronic kidney disease) Code(s): N18.9 - CHRONIC KIDNEY DISEASE, UNSPECIFIED (7) CVA (cerebral vascular accident) Code(s): I63.9 - CEREBRAL INFARCTION, UNSPECIFIED (8) HTN (hypertension) Code(s): I10 - ESSENTIAL (PRIMARY) HYPERTENSION
--- NOTE | 2016-08-14 15:43 | PN ---
Progress Note, Physician History of Present Illness: Pt seen and examined at bedside. He is awake and appears more comfortable than he did yesterday. - Current Medication List Current Medications: Active Medications Acetaminophen (Tylenol -) 650 mg PO Q6H PRN PRN Reason: PAIN/FEVER Albuterol Sulfate (Ventolin 0.5% -) 1 amp NEB Q4H PRN PRN Reason: ASTHMA Amlodipine Besylate (Norvasc -) 5 mg PO DAILY [facility] Last Admin: 08/14/16 10:20 Dose: 5 mg Aspirin (Asa -) 81 mg PO DAILY [facility] Last Admin: 08/14/16 10:20 Dose: 81 mg Atorvastatin Calcium (Lipitor -) 20 mg PO HS [facility] Last Admin: 08/13/16 21:14 Dose: 20 mg Clopidogrel Bisulfate (Plavix -) 75 mg PO DAILY [facility] Last Admin: 08/14/16 10:19 Dose: 75 mg Febuxostat (Uloric -) 40 mg PO DAILY [facility] Last Admin: 08/14/16 10:20 Dose: 40 mg Sodium Chloride (1/2 Normal Saline) 1,000 mls @ 50 mls/hr IV ASDIR [facility] Stop: 08/14/16 19:50 Last Admin: 08/13/16 21:13 Dose: 50 mls/hr Loratadine (Claritin -) 10 mg PO DAILY [facility] Last Admin: 08/14/16 10:20 Dose: 10 mg Tamsulosin HCl (Flomax -) 0.4 mg PO DAILY@0830 [facility] Last Admin: 08/14/16 10:19 Dose: 0.4 mg - Objective Vital Signs: Vital Signs Temperature 98.4 F 08/14/16 14:00 Pulse Rate 84 08/14/16 14:00 Respiratory Rate 18 08/14/16 14:00 Blood Pressure 103/56 08/14/16 14:00 O2 Sat by Pulse Oximetry (%) 95 08/14/16 09:00 Constitutional: Yes: Calm Eyes: Yes: Conjunctiva Clear HENT: Yes: Atraumatic Neck: Yes: Supple Cardiovascular: Yes: S1, S2 Respiratory: Yes: CTA Bilaterally Gastrointestinal: Yes: Soft Genitourinary: Yes: WNL Musculoskeletal: Yes: Muscle Weakness Edema: No Neurological: Yes: Pre-Existing Deficit Labs: CBC, BMP 08/13/16 06:00 08/14/16 06:00 Problem List - Problems (1) Acute renal failure Code(s): N17.9 - ACUTE KIDNEY FAILURE, UNSPECIFIED Qualifiers: Acute renal failure type: unspecified Qualified Code(s): N17.9 - Acute kidney failure, unspecified (2) Altered mental state Code(s): R41.82 - ALTERED MENTAL STATUS, UNSPECIFIED (3) Gallstones Code(s): K80.20 - CALCULUS OF GALLBLADDER W/O CHOLECYSTITIS W/O OBSTRUCTION (4) H/O: CVA (cerebrovascular accident) Code(s): Z86.73 - PRSNL HX OF TIA (TIA), AND CEREB INFRC W/O RESID DEFICITS (5) Troponin level elevated Code(s): R79.89 - OTHER SPECIFIED ABNORMAL FINDINGS OF BLOOD CHEMISTRY (6) Weakness Code(s): R53.1 - WEAKNESS (7) CKD (chronic kidney disease) Code(s): N18.9 - CHRONIC KIDNEY DISEASE, UNSPECIFIED (8) CVA (cerebral vascular accident) Code(s): I63.9 - CEREBRAL INFARCTION, UNSPECIFIED (9) HTN (hypertension) Code(s): I10 - ESSENTIAL (PRIMARY) HYPERTENSION (10) Renal cyst Code(s): N28.1 - CYST OF KIDNEY, ACQUIRED Assessment/Plan Current Medications Generic Name Dose Route Start Last Admin Trade Name Freq PRN Reason Stop Dose Admin Acetaminophen 650 mg 08/13/16 03:27 Tylenol - PO Q6H PRN PAIN/FEVER Albuterol Sulfate 1 amp 08/13/16 03:27 Ventolin 0.5% - NEB Q4H PRN ASTHMA Amlodipine Besylate 5 mg 08/13/16 10:00 08/14/16 10:20 Norvasc - PO 5 mg DAILY JANA Administration Aspirin 81 mg 08/13/16 10:00 08/14/16 10:20 Asa - PO 81 mg DAILY JANA Administration Atorvastatin Calcium 20 mg 08/13/16 22:00 08/13/16 21:14 Lipitor - PO 20 mg HS JANA Administration Clopidogrel Bisulfate 75 mg 08/13/16 10:00 08/14/16 10:19 Plavix - PO 75 mg DAILY JANA Administration Febuxostat 40 mg 08/13/16 10:00 08/14/16 10:20 Uloric - PO 40 mg DAILY JANA Administration Sodium Chloride 1,000 mls @ 50 mls/hr 08/13/16 20:00 08/13/16 21:13 1/2 Normal Saline IV 08/14/16 19:50 50 mls/hr ASDIR JANA Administration Loratadine 10 mg 08/13/16 10:00 08/14/16 10:20 Claritin - PO 10 mg DAILY JANA Administration Tamsulosin HCl 0.4 mg 08/13/16 08:30 08/14/16 10:19 Flomax - PO 0.4 mg DAILY@0830 JANA Administration Impression 1. PIEDAD 2. CKD 3. HTN 4. CVA 5. hyperlipidemia 6. renal cyst 7. gout 8. failure to thrive Plan - renal function is improving - elevated creatinine is likely secondary to dehydration - repeat labs in am - will decrease rate of fluids - follow renal workup - cont current meds - nutritional support - will follow Dr Duke
[2016-08-14] MEDS ORDERED: SODIUM CHLORIDE 0.45% 1,000 ML IV SCH (15:45)
--- NOTE | 2016-08-14 18:03 | PN ---
Progress Note (short form) - Note Progress Note: ID Consult dictated Leukopenia Possible viral syndrome Doubt pneumonia Observe off antibiotics
[2016-08-14] MEDS: ATORVASTATIN CA 20 MG TABLET (FP) PO SCH (21:50)
[2016-08-15 07:36] LABS: MCH 32.3 pg (25.7-33.7); MCHC 33.3 g/dl (32.0-35.9); MEAN CELL VOLUME 96.9 fl (80-96); MEAN PLT VOLUME 7.9 fl (7.5-11.1); PLATELET COUNT 212 K/MM3 (134-434); RDW 16.7 % (11.9-15.9)
[2016-08-15 08:04] LABS: ALBUMIN 2.6 g/dl (3.4-5.0); CALCIUM 8.9 mg/dL (8.5-10.1)
[2016-08-15 08:17] LABS: BILIRUBIN,TOTAL 0.2 mg/dL (0.2-1.0); CREATININE 2.5 mg/dL (0.7-1.3); THYROID STIMULATING HORMONE 1.72 uIU/ml (0.358-3.74); TOT PROT 5.6 g/dl (6.4-8.2)
--- NOTE | 2016-08-15 08:49 | CONSULT ---
Consult Consult Specialty:: Neurology - History of Present Illness History of Present Illness: Neurological consultation requested on 08/13/15 for an evaluation of this 85 yo admitted with "failure to thrive" and rolling mouth movements with reported change in mental status. 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 Cardio/Vascular: Yes: HTN, Hyperlipdemia Renal/: Yes: Renal Failure (CKD), Renal Inusuff Rheumatology: Yes: Gout - Alcohol/Substance Use Hx Alcohol Use: No History of Substance Use: reports: None - Smoking History Smoking history: Former smoker Home Medications - Allergies Allergies/Adverse Reactions: Allergies Allergy/AdvReac Type Severity Reaction Status Date / Time Penicillins Allergy Verified 08/12/16 18:09 - Home Medications Home Medications: Ambulatory Orders Acetaminophen 650 mg PO Q6H PRN 08/12/16 Albuterol Sulfate 0.5% [Ventolin 0.5% -] 1 neb IH Q4H 08/12/16 Amlodipine Besylate [Norvasc -] 5 mg PO DAILY 08/12/16 Aspirin [ASA -] 81 mg PO DAILY 08/12/16 Atorvastatin Ca [Lipitor] 20 mg PO HS 08/12/16 Clopidogrel Bisulfate [Plavix -] 75 mg PO DAILY 08/12/16 Febuxostat [Uloric -] 40 mg PO DAILY 08/12/16 Guaifenesin 100 mg PO Q4H PRN 08/12/16 Guaifenesin [Guaifenesin ER] 600 mg PO Q12H 08/12/16 Lactose-Reduced Food [Ensure Plus] 237 ml PO TID 08/12/16 Levofloxacin [Levaquin] 500 mg PO DAILY 08/12/16 Loratadine 10 mg PO DAILY 08/12/16 Tamsulosin HCl [Flomax] 0.4 mg PO DAILY 08/12/16 Physical Exam Vital Signs: Vital Signs Temperature 98.1 F 08/15/16 07:03 Pulse Rate 82 08/15/16 07:03 Respiratory Rate 16 08/15/16 07:03 Blood Pressure 121/56 08/15/16 07:03 O2 Sat by Pulse Oximetry (%) 95 08/14/16 21:00 Labs: CBC, BMP 08/15/16 06:20 08/15/16 06:20
--- NOTE | 2016-08-15 08:53 | PN ---
Progress Note, Physician History of Present Illness: Neurological consultation requested on 08/13/15 for an evaluation (ED record) of this 85 yo admitted with "failure to thrive" and rolling mouth movements with reported change in mental status. Today the patient is noted to have a right sided jarad-paresis with dysarthia. The patient has no complaints. 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 - Current Medication List Current Medications: Active Medications Acetaminophen (Tylenol -) 650 mg PO Q6H PRN PRN Reason: PAIN/FEVER Albuterol Sulfate (Ventolin 0.5% -) 1 amp NEB Q4H PRN PRN Reason: ASTHMA Amlodipine Besylate (Norvasc -) 5 mg PO DAILY [facility] Last Admin: 08/14/16 10:20 Dose: 5 mg Aspirin (Asa -) 81 mg PO DAILY [facility] Last Admin: 08/14/16 10:20 Dose: 81 mg Atorvastatin Calcium (Lipitor -) 20 mg PO HS [facility] Last Admin: 08/14/16 21:50 Dose: 20 mg Clopidogrel Bisulfate (Plavix -) 75 mg PO DAILY [facility] Last Admin: 08/14/16 10:19 Dose: 75 mg Febuxostat (Uloric -) 40 mg PO DAILY [facility] Last Admin: 08/14/16 10:20 Dose: 40 mg Sodium Chloride (1/2 Normal Saline) 1,000 mls @ 42 mls/hr IV ASDIR [facility] Last Admin: 08/14/16 21:51 Dose: 42 mls/hr Loratadine (Claritin -) 10 mg PO DAILY [facility] Last Admin: 08/14/16 10:20 Dose: 10 mg Tamsulosin HCl (Flomax -) 0.4 mg PO DAILY@0830 [facility] Last Admin: 08/14/16 10:19 Dose: 0.4 mg - Objective Vital Signs: Vital Signs Temperature 98.1 F 08/15/16 07:03 Pulse Rate 82 08/15/16 07:03 Respiratory Rate 16 08/15/16 07:03 Blood Pressure 121/56 08/15/16 07:03 O2 Sat by Pulse Oximetry (%) 95 08/14/16 21:00 Constitutional: Yes: Calm Eyes: Yes: EOM Intact, PERRL HENT: Yes: Atraumatic Neurological: Yes: Facial Droop (right sided with dense right sided hemiplegia, believed to sequalae of previous infarctions.) Labs: CBC, BMP 08/15/16 06:20 08/15/16 06:20 Assessment/Plan 85 yo with multiple infarctions and bilateral basal ganglia infarctions with oral facial dyskinesia likely a result of the old infarction Suggest optimize medical condition with no evidence of an acute neurological event, the patient is stable for the extended care facility when medically stable. Neuro will sign off, however if needed please call.
--- NOTE | 2016-08-15 09:59 | PN ---
Progress Note, Physician History of Present Illness: Pt seen and examined at bedside. He is awake and appears comfortable. He denies shortness of breath. - Current Medication List Current Medications: Active Medications Acetaminophen (Tylenol -) 650 mg PO Q6H PRN PRN Reason: PAIN/FEVER Albuterol Sulfate (Ventolin 0.5% -) 1 amp NEB Q4H PRN PRN Reason: ASTHMA Amlodipine Besylate (Norvasc -) 5 mg PO DAILY [facility] Last Admin: 08/14/16 10:20 Dose: 5 mg Aspirin (Asa -) 81 mg PO DAILY [facility] Last Admin: 08/14/16 10:20 Dose: 81 mg Atorvastatin Calcium (Lipitor -) 20 mg PO HS [facility] Last Admin: 08/14/16 21:50 Dose: 20 mg Clopidogrel Bisulfate (Plavix -) 75 mg PO DAILY [facility] Last Admin: 08/14/16 10:19 Dose: 75 mg Febuxostat (Uloric -) 40 mg PO DAILY [facility] Last Admin: 08/14/16 10:20 Dose: 40 mg Sodium Chloride (1/2 Normal Saline) 1,000 mls @ 42 mls/hr IV ASDIR [facility] Last Admin: 08/14/16 21:51 Dose: 42 mls/hr Loratadine (Claritin -) 10 mg PO DAILY [facility] Last Admin: 08/14/16 10:20 Dose: 10 mg Tamsulosin HCl (Flomax -) 0.4 mg PO DAILY@0830 [facility] Last Admin: 08/14/16 10:19 Dose: 0.4 mg - Objective Vital Signs: Vital Signs Temperature 98.1 F 08/15/16 07:03 Pulse Rate 82 08/15/16 07:03 Respiratory Rate 16 08/15/16 07:03 Blood Pressure 121/56 08/15/16 07:03 O2 Sat by Pulse Oximetry (%) 95 08/14/16 21:00 Constitutional: Yes: Calm Eyes: Yes: Conjunctiva Clear HENT: Yes: Atraumatic Neck: Yes: Supple Cardiovascular: Yes: S1, S2 Respiratory: Yes: CTA Bilaterally Gastrointestinal: Yes: Normal Bowel Sounds, Soft Genitourinary: Yes: WNL Musculoskeletal: Yes: WNL Edema: No Neurological: Yes: Pre-Existing Deficit Psychiatric: Yes: Oriented Labs: CBC, BMP 08/15/16 06:20 08/15/16 06:20 Problem List - Problems (1) Acute renal failure Code(s): N17.9 - ACUTE KIDNEY FAILURE, UNSPECIFIED Qualifiers: Acute renal failure type: unspecified Qualified Code(s): N17.9 - Acute kidney failure, unspecified (2) Altered mental state Code(s): R41.82 - ALTERED MENTAL STATUS, UNSPECIFIED (3) Gallstones Code(s): K80.20 - CALCULUS OF GALLBLADDER W/O CHOLECYSTITIS W/O OBSTRUCTION (4) H/O: CVA (cerebrovascular accident) Code(s): Z86.73 - PRSNL HX OF TIA (TIA), AND CEREB INFRC W/O RESID DEFICITS (5) Troponin level elevated Code(s): R79.89 - OTHER SPECIFIED ABNORMAL FINDINGS OF BLOOD CHEMISTRY (6) Weakness Code(s): R53.1 - WEAKNESS (7) CKD (chronic kidney disease) Code(s): N18.9 - CHRONIC KIDNEY DISEASE, UNSPECIFIED (8) CVA (cerebral vascular accident) Code(s): I63.9 - CEREBRAL INFARCTION, UNSPECIFIED (9) HTN (hypertension) Code(s): I10 - ESSENTIAL (PRIMARY) HYPERTENSION (10) Renal cyst Code(s): N28.1 - CYST OF KIDNEY, ACQUIRED Assessment/Plan Current Medications Generic Name Dose Route Start Last Admin Trade Name Freq PRN Reason Stop Dose Admin Acetaminophen 650 mg 08/13/16 03:27 Tylenol - PO Q6H PRN PAIN/FEVER Albuterol Sulfate 1 amp 08/13/16 03:27 Ventolin 0.5% - NEB Q4H PRN ASTHMA Amlodipine Besylate 5 mg 08/13/16 10:00 08/14/16 10:20 Norvasc - PO 5 mg DAILY [facility] Administration Aspirin 81 mg 08/13/16 10:00 08/14/16 10:20 Asa - PO 81 mg DAILY [facility] Administration Atorvastatin Calcium 20 mg 08/13/16 22:00 08/14/16 21:50 Lipitor - PO 20 mg HS [facility] Administration Clopidogrel Bisulfate 75 mg 08/13/16 10:00 08/14/16 10:19 Plavix - PO 75 mg DAILY [facility] Administration Febuxostat 40 mg 08/13/16 10:00 08/14/16 10:20 Uloric - PO 40 mg DAILY [facility] Administration Sodium Chloride 1,000 mls @ 42 mls/hr 08/14/16 15:45 08/14/16 21:51 1/2 Normal Saline IV 42 mls/hr ASDIR [facility] Administration Loratadine 10 mg 08/13/16 10:00 08/14/16 10:20 Claritin - PO 10 mg DAILY [facility] Administration Tamsulosin HCl 0.4 mg 08/13/16 08:30 08/14/16 10:19 Flomax - PO 0.4 mg DAILY@0830 [facility] Administration Impression 1. PIEDAD 2. CKD 3. HTN 4. CVA 5. hyperlipidemia 6. renal cyst 7. gout 8. failure to thrive Plan - renal function continues to improve - will need outpt renal workup - will follow - likely piedad from dehydration - cont current meds - nutritional support, encourage PO intake - will follow Dr Duke
[2016-08-15] MEDS: SODIUM CHLORIDE 0.45% 1,000 ML IV SCH ×2 (10:53→21:58)
[2016-08-15] MEDS: TAMSULOSIN HCL 0.4 MG CAP.ER.24H (FP) PO SCH (10:56)
[2016-08-15] MEDS: amLODIPine BESYLATE 5 MG TABLET (FP) PO SCH (10:57)
[2016-08-15] MEDS: ASPIRIN 81 MG CHEWABLE TABLETS PO SCH (10:57)
[2016-08-15] MEDS: LORATADINE 10 MG TABLET PO SCH (10:57)
[2016-08-15] MEDS: CLOPIDOGREL BISULFATE 75 MG TABLET (FP) PO SCH (10:58)
[2016-08-15] MEDS ORDERED: PT OWN MED DRAWER 7, Y5N ONE (11:01)
[2016-08-15] MEDS: FEBUXOSTAT 40 MG TAB PO SCH (11:01)
[2016-08-15 11:06] LABS: METAMYELOCYTE 1 % (0-2); PLATELET ESTIMATE ADEQUATE (NORMAL)
--- NOTE | 2016-08-15 11:13 | PN ---
Progress Note, Physician History of Present Illness: Awake, responsive No complaints No acute distress Breathing non-labored Afebrile WBC improved - Current Medication List Current Medications: Active Medications Acetaminophen (Tylenol -) 650 mg PO Q6H PRN PRN Reason: PAIN/FEVER Albuterol Sulfate (Ventolin 0.5% -) 1 amp NEB Q4H PRN PRN Reason: ASTHMA Amlodipine Besylate (Norvasc -) 5 mg PO DAILY [facility] Last Admin: 08/15/16 10:57 Dose: 5 mg Aspirin (Asa -) 81 mg PO DAILY [facility] Last Admin: 08/15/16 10:57 Dose: 81 mg Atorvastatin Calcium (Lipitor -) 20 mg PO HS [facility] Last Admin: 08/14/16 21:50 Dose: 20 mg Clopidogrel Bisulfate (Plavix -) 75 mg PO DAILY [facility] Last Admin: 08/15/16 10:58 Dose: 75 mg Febuxostat (Uloric -) 40 mg PO DAILY [facility] Last Admin: 08/15/16 11:01 Dose: 40 mg Sodium Chloride (1/2 Normal Saline) 1,000 mls @ 40 mls/hr IV ASDIR [facility] Last Admin: 08/15/16 10:53 Dose: Not Given Loratadine (Claritin -) 10 mg PO DAILY [facility] Last Admin: 08/15/16 10:57 Dose: 10 mg Tamsulosin HCl (Flomax -) 0.4 mg PO DAILY@0830 [facility] Last Admin: 08/15/16 10:56 Dose: 0.4 mg - Objective Vital Signs: Vital Signs Temperature 98.1 F 08/15/16 07:03 Pulse Rate 82 08/15/16 07:03 Respiratory Rate 16 08/15/16 07:03 Blood Pressure 121/56 08/15/16 07:03 O2 Sat by Pulse Oximetry (%) 95 08/14/16 21:00 Constitutional: Yes: No Distress Eyes: Yes: Conjunctiva Clear Cardiovascular: Yes: Regular Rate and Rhythm, S1, S2 Respiratory: Yes: Rhonchi, Wheezes, Other (+ rhonchi/ wheeze bilaterally) Gastrointestinal: Yes: Normal Bowel Sounds, Soft. No: Tenderness Edema: No Labs: CBC, BMP 08/15/16 06:20 08/15/16 06:20 Assessment/Plan Leukopenia- resolved Possible viral syndrome Elevated LFTs Observe off antibiotics
--- NOTE | 2016-08-15 16:05 | PN ---
Progress Note, Physician Chief Complaint: HAD D/W FAMILY & RN HAS THRUSH & RASH - Current Medication List Current Medications: Active Medications Acetaminophen (Tylenol -) 650 mg PO Q6H PRN PRN Reason: PAIN/FEVER Albuterol Sulfate (Ventolin 0.5% -) 1 amp NEB Q4H PRN PRN Reason: ASTHMA Amlodipine Besylate (Norvasc -) 5 mg PO DAILY [facility] Last Admin: 08/15/16 10:57 Dose: 5 mg Aspirin (Asa -) 81 mg PO DAILY [facility] Last Admin: 08/15/16 10:57 Dose: 81 mg Atorvastatin Calcium (Lipitor -) 20 mg PO HS [facility] Last Admin: 08/14/16 21:50 Dose: 20 mg Clopidogrel Bisulfate (Plavix -) 75 mg PO DAILY [facility] Last Admin: 08/15/16 10:58 Dose: 75 mg Febuxostat (Uloric -) 40 mg PO DAILY [facility] Last Admin: 08/15/16 11:01 Dose: 40 mg Sodium Chloride (1/2 Normal Saline) 1,000 mls @ 40 mls/hr IV ASDIR [facility] Last Admin: 08/15/16 10:53 Dose: Not Given Loratadine (Claritin -) 10 mg PO DAILY [facility] Last Admin: 08/15/16 10:57 Dose: 10 mg Tamsulosin HCl (Flomax -) 0.4 mg PO DAILY@0830 [facility] Last Admin: 08/15/16 10:56 Dose: 0.4 mg - Objective Vital Signs: Vital Signs Temperature 98.3 F 08/15/16 15:00 Pulse Rate 88 08/15/16 15:00 Respiratory Rate 18 08/15/16 15:00 Blood Pressure 116/57 08/15/16 15:00 O2 Sat by Pulse Oximetry (%) 95 08/15/16 09:00 Constitutional: Yes: Calm Cardiovascular: Yes: Regular Rate and Rhythm, S1, S2 Respiratory: Yes: CTA Bilaterally Gastrointestinal: Yes: Normal Bowel Sounds, Soft Edema: No Labs: CBC, BMP 08/15/16 06:20 08/15/16 06:20 Problem List - Problems (1) Acute renal failure Code(s): N17.9 - ACUTE KIDNEY FAILURE, UNSPECIFIED Qualifiers: Acute renal failure type: unspecified Qualified Code(s): N17.9 - Acute kidney failure, unspecified (2) CKD (chronic kidney disease) Code(s): N18.9 - CHRONIC KIDNEY DISEASE, UNSPECIFIED (3) Gallstones Code(s): K80.20 - CALCULUS OF GALLBLADDER W/O CHOLECYSTITIS W/O OBSTRUCTION (4) HTN (hypertension) Code(s): I10 - ESSENTIAL (PRIMARY) HYPERTENSION (5) Troponin level elevated Code(s): R79.89 - OTHER SPECIFIED ABNORMAL FINDINGS OF BLOOD CHEMISTRY (6) H/O: CVA (cerebrovascular accident) Code(s): Z86.73 - PRSNL HX OF TIA (TIA), AND CEREB INFRC W/O RESID DEFICITS (7) Weakness Code(s): R53.1 - WEAKNESS (8) Altered mental state Code(s): R41.82 - ALTERED MENTAL STATUS, UNSPECIFIED (9) Upper respiratory infection Code(s): J06.9 - ACUTE UPPER RESPIRATORY INFECTION, UNSPECIFIED Assessment/Plan Mr. Ahmadi is an 85 y/o male with a PMH of CVA, acute renal failure, HTN, CKD, hyperlipidemia, [facility] the ER today from his [facility] unsure of why he is here. Pt. is a poor historian and appears to be AOx2, did not realize he was in the hospital until told. Report from the [facility] states that the patient is having new rolling of his mouth and tongue, and is having increasing weakness/failure to thrive. Pt. has no specific complaints at this time. PtRomero was admitted to this facility on 07/13/16 for new acute renal failure. He was discharged on 07/15/16. (1) Acute renal failure Code(s): N17.9 - ACUTE KIDNEY FAILURE, UNSPECIFIED Qualifiers: Acute renal failure type: unspecified Qualified Code(s): N17.9 - Acute kidney failure, unspecified RENAL CONSULT APPRECIATED IMPROVED Cr 2.6 (2) CKD (chronic kidney disease) Code(s): N18.9 - CHRONIC KIDNEY DISEASE, UNSPECIFIED (3) Gallstones Code(s): K80.20 - CALCULUS OF GALLBLADDER W/O CHOLECYSTITIS W/O OBSTRUCTION + FATTY LIVER NEW HEPATITIS -> IMPROVED GI CONSULTED -> GI DR BENOIT TO F/U (4) HTN (hypertension) Code(s): I10 - ESSENTIAL (PRIMARY) HYPERTENSION ACCEPTABLE CONTROL (5) Troponin level elevated Code(s): R79.89 - OTHER SPECIFIED ABNORMAL FINDINGS OF BLOOD CHEMISTRY TRENDING DOWN APPRECIATE CARDIO CONSULT LOW SUSPICION OF ACS INCed TROP LIKELY 2/2 ARF (6) H/O: CVA (cerebrovascular accident) Code(s): Z86.73 - PRSNL HX OF TIA (TIA), AND CEREB INFRC W/O RESID DEFICITS CTB SHOWS OLD INFARACT NEURO CONSULT APPRECIATED -> NTD (7) Weakness Code(s): R53.1 - WEAKNESS R/O PNA -> LOW SUSPICION ID CONSULTED APPRECIATE PULM CONSULT NO FEVER/WBC NEG (8) Altered mental state Code(s): R41.82 - ALTERED MENTAL STATUS, UNSPECIFIED APPRECIATE ED NOTE -> Will consider Parkinson's as the mouth and tongue rolling are new according to the [facility] NEURO CONSULT APPRECIATED -> NTD (9) Upper respiratory infection Code(s): J06.9 - ACUTE UPPER RESPIRATORY INFECTION, UNSPECIFIED ID ON CASE OFF ABx -> OBSERVE DISCHARGE PLANNING FOR 08/16 WILL NEED ID 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
--- NOTE | 2016-08-15 16:43 | CONS ---
DATE OF CONSULTATION: DATE OF DICTATION: 08/15/2016 INFECTIOUS DISEASE CONSULTATION HISTORY OF PRESENT ILLNESS: An 85-year-old male evaluated for possible sepsis. History was obtained from the chart, as he cannot give a history secondary to his mental status. He is a jail resident. He was transferred to the hospital with reports of generalized weakness and failure to thrive. An occult infection was suspected. He was transferred to the ER, where a CAT scan of the head was performed and was negative for acute infarct or bleed. His course was notable for leukocytosis, renal insufficiency, and elevated liver enzymes. At the present time, he is awake and responsive. He denies any complaints. No high-grade fever, shaking chills. No complaints of chest pain, shortness of breath, cough, or sputum production. No dysuria or hematuria. PAST MEDICAL HISTORY: Positive for stroke, hypertension, chronic kidney disease, hyperlipidemia. ALLERGIES: PENICILLIN. The nature of this allergy is not known. MEDICATION: Include Flomax, Tylenol, Ventolin, Norvasc, Lipitor, aspirin, Plavix, Claritin. SOCIAL HISTORY: He is a jail resident. He is a former smoker. No active alcohol use. SYSTEMIC REVIEW: Neurologic: No loss of consciousness, seizure activity, or focal weakness. Cardiac: Negative chest pain or palpitations. Respiratory: Negative cough or sputum production. Gastrointestinal: Negative vomiting or diarrhea. Genitourinary: Negative for urinary tract infection. LABORATORY DATA: White count 3.9, 12% monocytes, hematocrit 32.0, platelet count 187. BUN 56, creatinine 2.7. Urinalysis 4 white cells. AST 130, ALT 259, alkaline phosphatase 131. Chest x-ray negative. PHYSICAL EXAMINATION: General: He is awake and responsive in no acute distress. Vital signs: Temperature 98.4, blood pressure 134/65, pulse 85 regular, respirations 18 per minute. HEENT: Sclerae anicteric. Cardiovascular: Heart sounds S1, S2. Respiratory: Lungs bilateral rhonchi and wheezing. . Abdomen: Soft. No tenderness elicited. No mass, rebound, or rigidity. Extremities: Negative for edema. IMPRESSION: 1. Leukopenia. Monocytosis. Elevated liver enzymes. Possible viral syndrome. 2. Elevated liver enzymes. 3. Doubt pneumonia. No clinical or radiographic evidence to suggest acute pneumonia. Would observe off antibiotic therapy. Monitor liver enzymes. Thank you for the kind referral. AMADOU SPENCER M.D. [id number]
[2016-08-15] MEDS: NYSTATIN 500,000 UNITS/5 ML SUSPENSION PO SCH ×2 (18:19→23:23)
--- NOTE | 2016-08-15 18:52 | CON.GI ---
Consult Consult Specialty:: GASTROENTEROLOGY Reason for Consultation:: ELEVATED LFT'S - History of Present Illness Chief Complaint: FAILURE TO THRIVE History of Present Illness: 85 YEAR OLD MALE WHO IS A POOR HISTORIAN ADMITTTED FROM A RETIREMENT WITH WEALKNESS, FALIURE TO THRIVE, ELEVATED LFT'S POSITIVE TROPONINS, AND POSSIBLE SEPSIS. hE CAN'T GIVE FULL HISTORY BUT DENIES HISTORY OF HEPATITIS AND DOES STATES THAT HE DID DRINK "SOME WHEN i WAS YOUNGER". fROM THE [facility] THERE IS NO HISTORY OF PAST ELEVATIONS IN LIVER ENYZMES. CT SCAN REVELAES ENLARGED ADRENALS AND GALLSTONES WITH NORMAL DUCTS AND NORMAL LOOKING GALLBLADDER. uLTRASOUND SHOWS THE GALLSTONES AND A FATTY LIVER. 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 -] 1 neb IH Q4H 08/12/16 Amlodipine Besylate [Norvasc -] 5 mg PO DAILY 08/12/16 Aspirin [ASA -] 81 mg PO DAILY 08/12/16 Atorvastatin Ca [Lipitor] 20 mg PO HS 08/12/16 Clopidogrel Bisulfate [Plavix -] 75 mg PO DAILY 08/12/16 Febuxostat [Uloric -] 40 mg PO DAILY 08/12/16 Guaifenesin [Guaifenesin ER] 600 mg PO Q12H 08/12/16 Loratadine 10 mg PO DAILY 08/12/16 Tamsulosin HCl [Flomax] 0.4 mg PO DAILY 08/12/16 Nystatin Cream [Mycostatin Cream -] 1 applic TP BID applic 08/17/16 Nystatin Oral Suspension - [Nystatin Oral Susp 912735 Units/5 ML -] 500,000 units PO Q6HPO cup 08/17/16 Family Disease History - Family Disease History Family History: Unable to Obtain Review of Systems Unable to obtain ROS, reason: POOR HISTORIAN, CLINICAL Physical Exam-GI Vital Signs: Vital Signs Temperature 98.4 F 08/15/16 18:45 Pulse Rate 90 08/15/16 18:45 Respiratory Rate 18 08/15/16 18:45 Blood Pressure 123/61 08/15/16 18:45 O2 Sat by Pulse Oximetry (%) 95 08/15/16 09:00 Constitutional: Yes: Calm Eyes: Yes: Conjunctiva Clear HENT: Yes: Normocephalic Cardiovascular: Yes: Regular Rate and Rhythm, Murmur Respiratory: Yes: Rhonchi Gastrointestinal Inspection: Yes: Other (NO EVIDENCE OF CHRONIC LIVER DISEASE) ...Auscultate: Yes: Normoactive Bowel Sounds, Other ...Palpate: Yes: Soft Extremities: Yes: WNL Labs: CBC, BMP 08/15/16 06:20 08/15/16 06:20 Imaging - Results Cat Scan: Image Reviewed Ultrasound: Image Reviewed Problem List - Problems (1) Elevated transaminase measurement Assessment/Plan: i DO NOT BELIEVE THIS HAS ANYTHING TO DO WITH HIS GALLSTONES.I WILL SEND OFF LIVER WORKUP. SHOULD FOLLOW UP ON LFT'S DALIY FOR 5 DAYS. IF INDEED INFECTED THS CAN ACCOUNT FOR SOME OF THE ELEVATION. A FATTY LIVER PROBBLY WOULD NOT RAISE THE LEVELS THIS HIGH. I DRUG INDUCED HEPATITIS IS ALWAYS A POSSIBILITY. PRIOR LABS AND DRUG LIST FROM THE RETIREMENT WOULD BE NICE TO SEE. Code(s): R74.0 - NONSPEC ELEV OF LEVELS OF TRANSAMNS & LACTIC ACID DEHYDRGNSE (2) Gallstones Code(s): K80.20 - CALCULUS OF GALLBLADDER W/O CHOLECYSTITIS W/O OBSTRUCTION (3) Acute renal failure Code(s): N17.9 - ACUTE KIDNEY FAILURE, UNSPECIFIED Qualifiers: Acute renal failure type: unspecified Qualified Code(s): N17.9 - Acute kidney failure, unspecified (4) Altered mental state Code(s): R41.82 - ALTERED MENTAL STATUS, UNSPECIFIED (5) H/O: CVA (cerebrovascular accident) Code(s): Z86.73 - PRSNL HX OF TIA (TIA), AND CEREB INFRC W/O RESID DEFICITS (6) Troponin level elevated Code(s): R79.89 - OTHER SPECIFIED ABNORMAL FINDINGS OF BLOOD CHEMISTRY (7) CKD (chronic kidney disease) Code(s): N18.9 - CHRONIC KIDNEY DISEASE, UNSPECIFIED Qualifiers: Chronic kidney disease stage: unspecified stage Qualified Code(s): N18.9 - Chronic kidney disease, unspecified (8) CVA (cerebral vascular accident) Code(s): I63.9 - CEREBRAL INFARCTION, UNSPECIFIED (9) HTN (hypertension) Code(s): I10 - ESSENTIAL (PRIMARY) HYPERTENSION
[2016-08-15] MEDS: ATORVASTATIN CA 20 MG TABLET (FP) PO SCH (21:58)
[2016-08-15] MEDS: NYSTATIN 100,000 UNIT/GM TOPICAL CREAM 15 GM TUBE TP SCH (21:59)
[2016-08-16] MEDS: NYSTATIN 500,000 UNITS/5 ML SUSPENSION PO SCH ×4 (05:49→23:31)
[2016-08-16 07:38] LABS: MCH 32.8 pg (25.7-33.7); MCHC 33.9 g/dl (32.0-35.9); MEAN CELL VOLUME 96.7 fl (80-96); PLATELET COUNT 231 K/MM3 (134-434); RDW 16.6 % (11.9-15.9); WHITE BLOOD COUNT 5.6 K/mm3 (4.0-10.0)
[2016-08-16 07:59] LABS: CALCIUM 9.5 mg/dL (8.5-10.1); CREATININE 2.1 mg/dL (0.7-1.3)
[2016-08-16] MEDS: TAMSULOSIN HCL 0.4 MG CAP.ER.24H (FP) PO SCH (09:01)
[2016-08-16] MEDS: ASPIRIN 81 MG CHEWABLE TABLETS PO SCH (09:01)
[2016-08-16] MEDS: CLOPIDOGREL BISULFATE 75 MG TABLET (FP) PO SCH (09:01)
[2016-08-16] MEDS: amLODIPine BESYLATE 5 MG TABLET (FP) PO SCH (09:01)
[2016-08-16] MEDS: FEBUXOSTAT 40 MG TAB PO SCH (09:13)
[2016-08-16] MEDS: NYSTATIN 100,000 UNIT/GM TOPICAL CREAM 15 GM TUBE TP SCH ×2 (09:15→21:15)
[2016-08-16] MEDS: LORATADINE 10 MG TABLET PO SCH (09:16)
[2016-08-16] MEDS: SODIUM CHLORIDE 0.45% 1,000 ML IV SCH (09:16)
--- NOTE | 2016-08-16 16:33 | PN ---
Progress Note, Physician History of Present Illness: Pt seen and examined at bedside. His PO intake remains poor. He required one to on feeds. - Current Medication List Current Medications: Active Medications Acetaminophen (Tylenol -) 650 mg PO Q6H PRN PRN Reason: PAIN/FEVER Albuterol Sulfate (Ventolin 0.5% -) 1 amp NEB Q4H PRN PRN Reason: ASTHMA Amlodipine Besylate (Norvasc -) 5 mg PO DAILY [facility] Last Admin: 08/16/16 09:01 Dose: 5 mg Aspirin (Asa -) 81 mg PO DAILY [facility] Last Admin: 08/16/16 09:01 Dose: 81 mg Atorvastatin Calcium (Lipitor -) 20 mg PO HS [facility] Last Admin: 08/15/16 21:58 Dose: 20 mg Clopidogrel Bisulfate (Plavix -) 75 mg PO DAILY [facility] Last Admin: 08/16/16 09:01 Dose: 75 mg Febuxostat (Uloric -) 40 mg PO DAILY [facility] Last Admin: 08/16/16 09:13 Dose: 40 mg Sodium Chloride (1/2 Normal Saline) 1,000 mls @ 40 mls/hr IV ASDIR [facility] Last Admin: 08/16/16 09:16 Dose: 40 mls/hr Loratadine (Claritin -) 10 mg PO DAILY [facility] Last Admin: 08/16/16 09:16 Dose: 10 mg Nystatin (Nystatin Oral Suspension -) 500,000 units PO Q6HPO [facility] Last Admin: 08/16/16 13:29 Dose: 500,000 units Nystatin (Mycostatin Cream -) 1 applic TP BID [facility] Last Admin: 08/16/16 09:15 Dose: 1 applic Tamsulosin HCl (Flomax -) 0.4 mg PO DAILY@0830 [facility] Last Admin: 08/16/16 09:01 Dose: 0.4 mg - Objective Vital Signs: Vital Signs Temperature 98.0 F 08/16/16 15:01 Pulse Rate 90 08/16/16 15:01 Respiratory Rate 18 08/16/16 15:01 Blood Pressure 126/47 08/16/16 15:01 O2 Sat by Pulse Oximetry (%) 97 08/16/16 10:00 Constitutional: Yes: Calm Eyes: Yes: Conjunctiva Clear HENT: Yes: Atraumatic Neck: Yes: Supple Cardiovascular: Yes: S1, S2 Respiratory: Yes: CTA Bilaterally Gastrointestinal: Yes: Soft Musculoskeletal: Yes: Muscle Weakness Edema: No Neurological: Yes: Pre-Existing Deficit Psychiatric: Yes: Oriented Labs: CBC, BMP 08/16/16 05:35 08/16/16 05:35 Problem List - Problems (1) Acute renal failure Code(s): N17.9 - ACUTE KIDNEY FAILURE, UNSPECIFIED Qualifiers: Qualified Code(s): N17.9 - Acute kidney failure, unspecified (2) Altered mental state Code(s): R41.82 - ALTERED MENTAL STATUS, UNSPECIFIED (3) Gallstones Code(s): K80.20 - CALCULUS OF GALLBLADDER W/O CHOLECYSTITIS W/O OBSTRUCTION (4) H/O: CVA (cerebrovascular accident) Code(s): Z86.73 - PRSNL HX OF TIA (TIA), AND CEREB INFRC W/O RESID DEFICITS (5) Troponin level elevated Code(s): R79.89 - OTHER SPECIFIED ABNORMAL FINDINGS OF BLOOD CHEMISTRY (6) Weakness Code(s): R53.1 - WEAKNESS (7) CKD (chronic kidney disease) Code(s): N18.9 - CHRONIC KIDNEY DISEASE, UNSPECIFIED (8) CVA (cerebral vascular accident) Code(s): I63.9 - CEREBRAL INFARCTION, UNSPECIFIED (9) HTN (hypertension) Code(s): I10 - ESSENTIAL (PRIMARY) HYPERTENSION (10) Renal cyst Code(s): N28.1 - CYST OF KIDNEY, ACQUIRED Assessment/Plan Current Medications Generic Name Dose Route Start Last Admin Trade Name Freq PRN Reason Stop Dose Admin Acetaminophen 650 mg 08/13/16 03:27 Tylenol - PO Q6H PRN PAIN/FEVER Albuterol Sulfate 1 amp 08/13/16 03:27 Ventolin 0.5% - NEB Q4H PRN ASTHMA Amlodipine Besylate 5 mg 08/13/16 10:00 08/16/16 09:01 Norvasc - PO 5 mg DAILY [facility] Administration Aspirin 81 mg 08/13/16 10:00 08/16/16 09:01 Asa - PO 81 mg DAILY [facility] Administration Atorvastatin Calcium 20 mg 08/13/16 22:00 08/15/16 21:58 Lipitor - PO 20 mg HS [facility] Administration Clopidogrel Bisulfate 75 mg 08/13/16 10:00 08/16/16 09:01 Plavix - PO 75 mg DAILY [facility] Administration Febuxostat 40 mg 08/13/16 10:00 08/16/16 09:13 Uloric - PO 40 mg DAILY [facility] Administration Sodium Chloride 1,000 mls @ 40 mls/hr 08/15/16 09:59 08/16/16 09:16 1/2 Normal Saline IV 40 mls/hr ASDIR [facility] Administration Loratadine 10 mg 08/13/16 10:00 08/16/16 09:16 Claritin - PO 10 mg DAILY [facility] Administration Nystatin 500,000 units 08/15/16 18:00 08/16/16 13:29 Nystatin Oral Suspension - PO 500,000 units Q6HPO [facility] Administration Nystatin 1 applic 08/15/16 22:00 08/16/16 09:15 Mycostatin Cream - TP 1 applic BID [facility] Administration Tamsulosin HCl 0.4 mg 08/13/16 08:30 08/16/16 09:01 Flomax - PO 0.4 mg DAILY@0830 [facility] Administration Impression 1. PIEDAD 2. CKD 3. HTN 4. CVA 5. hyperlipidemia 6. renal cyst 7. gout 8. failure to thrive Plan - renal function improving on fluids, will continue - repeat labs in am - will need to encourage PO intake and keep pt hydrated - diuretics on hold for now - will need outpt renal workup - will follow - likely piedad from dehydration - cont current meds Dr Duke
--- NOTE | 2016-08-16 17:07 | PN ---
Progress Note, Physician Chief Complaint: AWAKE ALERT X 2 DENIES CHEST PAIN OR SOB APPETITE IMPROVING - Current Medication List Current Medications: Active Medications Acetaminophen (Tylenol -) 650 mg PO Q6H PRN PRN Reason: PAIN/FEVER Albuterol Sulfate (Ventolin 0.5% -) 1 amp NEB Q4H PRN PRN Reason: ASTHMA Amlodipine Besylate (Norvasc -) 5 mg PO DAILY [facility] Last Admin: 08/16/16 09:01 Dose: 5 mg Aspirin (Asa -) 81 mg PO DAILY [facility] Last Admin: 08/16/16 09:01 Dose: 81 mg Atorvastatin Calcium (Lipitor -) 20 mg PO HS [facility] Last Admin: 08/15/16 21:58 Dose: 20 mg Clopidogrel Bisulfate (Plavix -) 75 mg PO DAILY [facility] Last Admin: 08/16/16 09:01 Dose: 75 mg Febuxostat (Uloric -) 40 mg PO DAILY [facility] Last Admin: 08/16/16 09:13 Dose: 40 mg Sodium Chloride (1/2 Normal Saline) 1,000 mls @ 40 mls/hr IV ASDIR [facility] Last Admin: 08/16/16 09:16 Dose: 40 mls/hr Loratadine (Claritin -) 10 mg PO DAILY [facility] Last Admin: 08/16/16 09:16 Dose: 10 mg Nystatin (Nystatin Oral Suspension -) 500,000 units PO Q6HPO [facility] Last Admin: 08/16/16 13:29 Dose: 500,000 units Nystatin (Mycostatin Cream -) 1 applic TP BID [facility] Last Admin: 08/16/16 09:15 Dose: 1 applic Tamsulosin HCl (Flomax -) 0.4 mg PO DAILY@0830 [facility] Last Admin: 08/16/16 09:01 Dose: 0.4 mg - Objective Vital Signs: Vital Signs Temperature 98.0 F 08/16/16 15:01 Pulse Rate 90 08/16/16 15:01 Respiratory Rate 18 08/16/16 15:01 Blood Pressure 126/47 08/16/16 15:01 O2 Sat by Pulse Oximetry (%) 97 08/16/16 10:00 Constitutional: Yes: Mild Distress Eyes: Yes: WNL HENT: Yes: WNL Neck: Yes: WNL Cardiovascular: Yes: WNL Respiratory: Yes: Rhonchi Gastrointestinal: Yes: WNL Genitourinary: Yes: Incontinence Musculoskeletal: Yes: Muscle Weakness Extremities: Yes: Other Edema: No Peripheral Pulses WNL: Yes Integumentary: Yes: WNL Wound/Incision: Yes: Clean/Dry Neurological: Yes: Pre-Existing Deficit, Unsteady Gait, Weakness ...Motor Strength: LLE, RLE Psychiatric: Yes: Other Labs: CBC, BMP 08/16/16 05:35 08/16/16 05:35 Assessment/Plan CHF? ORDER BNP AND CXR PHYSICAL EXAM +RHONCI B/L CAN DC IVF NEUROLOGY WORKUP APPRECIATED RENAL FUNCTION CKD IMPROVING OFF ABX, MONITOR PT EVAL POOR QUALITY OF LIFE WITH NON-AMBULATORY STATUS
[2016-08-16] MEDS ORDERED: PT OWN MED DRAWER 7, Y5N ONE (17:26)
[2016-08-16] MEDS: ATORVASTATIN CA 20 MG TABLET (FP) PO SCH (21:15)
[2016-08-16] MEDS: ALBUTEROL SO4 0.5 % INH SOLN 2.5 MG/0.5 ML VIAL.NEB. NEB PRN (23:19)
[2016-08-17] MEDS: NYSTATIN 500,000 UNITS/5 ML SUSPENSION PO SCH (05:48)
[2016-08-17] MEDS: ALBUTEROL SO4 0.5 % INH SOLN 2.5 MG/0.5 ML VIAL.NEB. NEB PRN ×2 (06:00→09:39)
[2016-08-17 06:06] LABS: HEP B SURFACE AB Non Reactive (.)
[2016-08-17 07:02] LABS: CALCIUM 9.3 mg/dL (8.5-10.1); CREATININE 2.1 mg/dL (0.7-1.3)
[2016-08-17] MEDS ORDERED: PT OWN MED DRAWER 7, Y5N ONE (08:31)
[2016-08-17] MEDS: TAMSULOSIN HCL 0.4 MG CAP.ER.24H (FP) PO SCH (08:52)
[2016-08-17] MEDS: LORATADINE 10 MG TABLET PO SCH (09:00)
[2016-08-17] MEDS: amLODIPine BESYLATE 5 MG TABLET (FP) PO SCH (09:00)
[2016-08-17] MEDS: ASPIRIN 81 MG CHEWABLE TABLETS PO SCH (09:00)
[2016-08-17] MEDS: CLOPIDOGREL BISULFATE 75 MG TABLET (FP) PO SCH (09:00)
[2016-08-17] MEDS: FEBUXOSTAT 40 MG TAB PO SCH (09:03)
[2016-08-17] MEDS: NYSTATIN 100,000 UNIT/GM TOPICAL CREAM 15 GM TUBE TP SCH (09:03)
--- NOTE | 2016-08-17 09:34 | DS ---
Physical Examination Vital Signs: Vital Signs Temperature 99.1 F 08/17/16 06:00 Pulse Rate 94 H 08/17/16 06:00 Respiratory Rate 20 08/17/16 06:00 Blood Pressure 116/55 08/17/16 06:00 O2 Sat by Pulse Oximetry (%) 95 08/16/16 21:00 Constitutional: Yes: Mild Distress Eyes: Yes: WNL HENT: Yes: WNL Neck: Yes: WNL Cardiovascular: Yes: WNL Respiratory: Yes: WNL Gastrointestinal: Yes: WNL ...Rectal Exam: Yes: WNL Musculoskeletal: Yes: Muscle Weakness Extremities: Yes: WNL Edema: No Peripheral Pulses WNL: Yes Integumentary: Yes: WNL Wound/Incision: Yes: Clean/Dry Neurological: Yes: Unsteady Gait ...Motor Strength: LLE, RLE Psychiatric: Yes: WNL Labs: CBC, BMP 08/16/16 05:35 08/17/16 05:35 Discharge Summary Reason For Visit: ARF/ELEVATED TROPONIN LEVELS Current Active Problems Acute renal failure (Acute) Altered mental state (Acute) Elevated transaminase measurement (Acute) Gallstones (Acute) H/O: CVA (cerebrovascular accident) (Acute) Troponin level elevated (Acute) Upper respiratory infection (Acute) Weakness (Acute) Procedures: Principal: CT SCAN HEAD/ABD Other Procedures: LABS Hospital Course: ADMITTED ACUTE CHOLCYSTITIS, ACUTE RENAL FAILURE, IV FLUIDS, ABX IMPROVED WILL DC TO SNF FOR CONSERVATIVE THERAPY AND F/U Condition: Guarded - Instructions Diet, Activity, Other Instructions: SODIUM FREE Referrals: Alfonso Pa MD [Primary Care Provider] - Disposition: [facility]ILITY - Home Medications Comprehensive Discharge Medication List: Ambulatory Orders Acetaminophen 650 mg PO Q6H PRN 08/12/16 Albuterol Sulfate 0.5% [Ventolin 0.5% Nebulizing Soln. -] 1 neb IH Q4H 08/12/16 Amlodipine Besylate [Norvasc -] 5 mg PO DAILY 08/12/16 Aspirin [ASA -] 81 mg PO DAILY 08/12/16 Atorvastatin Ca [Lipitor] 20 mg PO HS 08/12/16 Clopidogrel Bisulfate [Plavix -] 75 mg PO DAILY 08/12/16 Febuxostat [Uloric -] 40 mg PO DAILY 08/12/16 Guaifenesin 100 mg PO Q4H PRN 08/12/16 Guaifenesin [Guaifenesin ER] 600 mg PO Q12H 08/12/16 Lactose-Reduced Food [Ensure Plus] 237 ml PO TID 08/12/16 Loratadine 10 mg PO DAILY 08/12/16 Tamsulosin HCl [Flomax] 0.4 mg PO DAILY 08/12/16 Nystatin Cream [Mycostatin Cream -] 1 applic TP BID applic 08/17/16 Nystatin Oral Suspension - [Nystatin Oral Susp 335553 Units/5 ML -] 500,000 units PO Q6HPO cup 08/17/16
--- NOTE | 2016-08-17 11:05 | PN ---
Progress Note, Physician History of Present Illness: Pt seen and examined at bedside. He is awake and alert. He is out of bed to chair. - Current Medication List Current Medications: Active Medications Acetaminophen (Tylenol -) 650 mg PO Q6H PRN PRN Reason: PAIN/FEVER Albuterol Sulfate (Ventolin 0.5% -) 1 amp NEB Q4H PRN PRN Reason: ASTHMA Last Admin: 08/17/16 09:39 Dose: 1 amp Amlodipine Besylate (Norvasc -) 5 mg PO DAILY [facility] Last Admin: 08/17/16 09:00 Dose: 5 mg Aspirin (Asa -) 81 mg PO DAILY [facility] Last Admin: 08/17/16 09:00 Dose: 81 mg Atorvastatin Calcium (Lipitor -) 20 mg PO HS [facility] Last Admin: 08/16/16 21:15 Dose: 20 mg Clopidogrel Bisulfate (Plavix -) 75 mg PO DAILY [facility] Last Admin: 08/17/16 09:00 Dose: 75 mg Febuxostat (Uloric -) 40 mg PO DAILY [facility] Last Admin: 08/17/16 09:03 Dose: 40 mg Loratadine (Claritin -) 10 mg PO DAILY [facility] Last Admin: 08/17/16 09:00 Dose: 10 mg Nystatin (Nystatin Oral Suspension -) 500,000 units PO Q6HPO [facility] Last Admin: 08/17/16 05:48 Dose: 500,000 units Nystatin (Mycostatin Cream -) 1 applic TP BID [facility] Last Admin: 08/17/16 09:03 Dose: 1 applic Tamsulosin HCl (Flomax -) 0.4 mg PO DAILY@0830 [facility] Last Admin: 08/17/16 08:52 Dose: 0.4 mg - Objective Vital Signs: Vital Signs Temperature 99.1 F 08/17/16 06:00 Pulse Rate 94 H 08/17/16 09:38 Respiratory Rate 20 08/17/16 06:00 Blood Pressure 116/55 08/17/16 06:00 O2 Sat by Pulse Oximetry (%) 97 08/17/16 09:38 Constitutional: Yes: Calm Eyes: Yes: Conjunctiva Clear HENT: Yes: Atraumatic Neck: Yes: Supple Cardiovascular: Yes: S1, S2 Respiratory: Yes: On Nasal O2 Gastrointestinal: Yes: Soft Genitourinary: Yes: WNL Musculoskeletal: Yes: Muscle Weakness Edema: No Neurological: Yes: Pre-Existing Deficit Labs: CBC, BMP 08/16/16 05:35 08/17/16 05:35 Problem List - Problems (1) Acute renal failure Code(s): N17.9 - ACUTE KIDNEY FAILURE, UNSPECIFIED Qualifiers: Qualified Code(s): N17.9 - Acute kidney failure, unspecified (2) Altered mental state Code(s): R41.82 - ALTERED MENTAL STATUS, UNSPECIFIED (3) Gallstones Code(s): K80.20 - CALCULUS OF GALLBLADDER W/O CHOLECYSTITIS W/O OBSTRUCTION (4) H/O: CVA (cerebrovascular accident) Code(s): Z86.73 - PRSNL HX OF TIA (TIA), AND CEREB INFRC W/O RESID DEFICITS (5) Troponin level elevated Code(s): R79.89 - OTHER SPECIFIED ABNORMAL FINDINGS OF BLOOD CHEMISTRY (6) Weakness Code(s): R53.1 - WEAKNESS (7) CKD (chronic kidney disease) Code(s): N18.9 - CHRONIC KIDNEY DISEASE, UNSPECIFIED (8) CVA (cerebral vascular accident) Code(s): I63.9 - CEREBRAL INFARCTION, UNSPECIFIED (9) HTN (hypertension) Code(s): I10 - ESSENTIAL (PRIMARY) HYPERTENSION (10) Renal cyst Code(s): N28.1 - CYST OF KIDNEY, ACQUIRED Assessment/Plan Current Medications Generic Name Dose Route Start Last Admin Trade Name Freq PRN Reason Stop Dose Admin Acetaminophen 650 mg 08/13/16 03:27 Tylenol - PO Q6H PRN PAIN/FEVER Albuterol Sulfate 1 amp 08/13/16 03:27 08/17/16 09:39 Ventolin 0.5% - NEB 1 amp Q4H PRN Administration ASTHMA Amlodipine Besylate 5 mg 08/13/16 10:00 08/17/16 09:00 Norvasc - PO 5 mg DAILY [facility] Administration Aspirin 81 mg 08/13/16 10:00 08/17/16 09:00 Asa - PO 81 mg DAILY [facility] Administration Atorvastatin Calcium 20 mg 08/13/16 22:00 08/16/16 21:15 Lipitor - PO 20 mg HS [facility] Administration Clopidogrel Bisulfate 75 mg 08/13/16 10:00 08/17/16 09:00 Plavix - PO 75 mg DAILY [facility] Administration Febuxostat 40 mg 08/13/16 10:00 08/17/16 09:03 Uloric - PO 40 mg DAILY [facility] Administration Loratadine 10 mg 08/13/16 10:00 08/17/16 09:00 Claritin - PO 10 mg DAILY [facility] Administration Nystatin 500,000 units 08/15/16 18:00 08/17/16 05:48 Nystatin Oral Suspension - PO 500,000 units Q6HPO [facility] Administration Nystatin 1 applic 08/15/16 22:00 08/17/16 09:03 Mycostatin Cream - TP 1 applic BID [facility] Administration Tamsulosin HCl 0.4 mg 08/13/16 08:30 08/17/16 08:52 Flomax - PO 0.4 mg DAILY@0830 [facility] Administration Impression 1. PIEDAD 2. CKD 3. HTN 4. CVA 5. hyperlipidemia 6. renal cyst 7. gout 8. failure to thrive Plan - renal function has stabilized - encourage PO intake - would hold off diuretics for now - evaluate volume status in NH - will need outpt renal workup - will follow - likely piedad from dehydration - cont current meds Dr Duke
[2016-08-17 11:46] VITALS: BP 122/63; PULSE 92; TEMP 98.5
[2016-08-18 00:06] LABS: SMOOTH MUSCLE AB 36 Units (0-19)
== END 2016-08-17 11:22 | DRG 683 ==
LOC: JER 18:05 → JERBED 23:59 → J4S 08-13 04:20
PROVIDERS: ADMIT Family Medicine; ATTEND Family Medicine
DX: N17.9 Acute kidney failure, unspecified (principal); I69.351 Hemiplegia and hemiparesis following cerebral infarction affecting right dominant side; K80.00 Calculus of gallbladder with acute cholecystitis without obstruction; E78.5 Hyperlipidemia, unspecified; B37.9 Candidiasis, unspecified; R79.89 Other specified abnormal findings of blood chemistry; I12.9 Hypertensive chronic kidney disease with stage 1 through stage 4 chronic kidney disease, or unspecified chronic kidney disease; N18.9 Chronic kidney disease, unspecified; R62.7 Adult failure to thrive; K76.0 Fatty (change of) liver, not elsewhere classified; R32 Unspecified urinary incontinence; N28.1 Cyst of kidney, acquired; D72.819 Decreased white blood cell count, unspecified; I69.322 Dysarthria following cerebral infarction; J06.9 Acute upper respiratory infection, unspecified; E86.0 Dehydration
CPT/HCPCS: 36415; 70450-TC; 71010-TC; 74176-TC; 76705-TC; 80048; 80053; 81003; 81015; 82525; 82550; 82570; 82607; 83516; 83880; 84156; 84443; 84484; 85025; 86593; 86704; 86706; 86708; 87340; 93005; 93010; 94010; 94640; 97116-GP; 97161-GP; 99285-25

== ENCOUNTER 2016-08-19 11:29 | Emergency (ER) | payer OTHER, BC ==
[2016-08-19 12:01] VITALS: TEMP 98.4; BMI 25.4
--- NOTE | 2016-08-19 12:10 | PDOC ---
History of Present Illness - General History Source: Patient Exam Limitations: No Limitations - History of Present Illness Initial Comments: 08/19/16 12:00 The patient is an 85-year-old male, from [facility], with a significant past medical history of cerebrovascular accident, hypertension, hypercholesterolemia and chronic kidney disease who was sent from the long-term, to the emergency department via EMS for further evaluation of hyperkalemia. History of Present Illness is limited, as patient is a poor historian (chronic since his CVA per his daughter). As per long-term documentation, the patient underwent outpatient labs, which was indicative for a high potassium of 6.2. As per patient, he denies any pain. He denies nausea, vomiting, diarrhea, fevers, chills, urinary symptoms, chest pain, cough, shortness of breath. Allergies: Penicillin Social History: Former smoker. No ETOH and recreational drug use. <Zenaida Ramírez - Last Filed: 08/19/16 15:29> <Willy Smith - Last Filed: 08/20/16 09:35> - General Chief Complaint: Revisit, Lab Variance Stated Complaint: ABNORMAL LABS Time Seen by Provider: 08/19/16 11:58 Past History <Zenaida Ramírez - Last Filed: 08/19/16 15:29> - Past Medical History Anemia: Yes CVA: Yes Disorders: Yes (Chronic Kidney Disease) HTN: Yes Hypercholesterolemia: Yes Other medical history: Gout, PVD, Muscle Weakness, ALtered Mental Status - Psycho/Social/Smoking Cessation Hx Suicidal Ideation: No Smoking History: Unknown if ever smoked Hx Alcohol Use: No Drug/Substance Use Hx: No <Willy Smith - Last Filed: 08/20/16 09:35> - Past Medical History Allergies/Adverse Reactions: Allergies Allergy/AdvReac Type Severity Reaction Status Date / Time Penicillins Allergy Verified 08/12/16 18:09 Home Medications: Ambulatory Orders Acetaminophen 650 mg PO Q6H PRN 08/12/16 Albuterol Sulfate 0.5% [Ventolin 0.5% Nebulizing Soln. -] 1 neb IH Q4H 08/12/16 Amlodipine Besylate [Norvasc -] 5 mg PO DAILY 08/12/16 Aspirin [ASA -] 81 mg PO DAILY 08/12/16 Atorvastatin Ca [Lipitor] 20 mg PO HS 02/03/17 Clopidogrel Bisulfate [Plavix -] 75 mg PO DAILY 08/12/16 Febuxostat [Uloric -] 40 mg PO DAILY 08/12/16 Guaifenesin [Guaifenesin ER] 600 mg PO Q12H 08/12/16 Loratadine 10 mg PO DAILY 08/12/16 Tamsulosin HCl [Flomax] 0.4 mg PO DAILY 08/12/16 Nystatin Cream [Mycostatin Cream -] 1 applic TP BID applic 08/17/16 Nystatin Oral Suspension - [Nystatin Oral Susp 535710 Units/5 ML -] 500,000 units PO Q6HPO cup 08/17/16 Review of Systems - Review of Systems Able to Perform ROS?: No Comments:: 08/19/16 15:30 Limited <Zenaida Ramírez - Last Filed: 08/19/16 15:29> *Physical Exam - Vital Signs Last Vital Signs Temp Pulse Resp BP Pulse Ox 98.4 F 87 18 155/85 100 08/19/16 11:58 08/19/16 11:58 08/19/16 11:58 08/19/16 11:58 08/19/16 12:30 - Physical Exam Comments: 08/19/16 12:00 GENERAL: The patient is awake, alert, and oriented to self, Nontoxic - in no acute distress. HEAD: Normocephalic, atraumatic. EYES: extraocular movements intact, sclera anicteric, conjunctiva clear. ENT: Normal voice, Moist mucous membranes. NECK: Normal range of motion, supple LUNGS: Scant rales at the right base. No wheezes, no rhonchi. HEART: Regular rate and rhythm, ABDOMEN: Soft, nontender, normoactive bowel sounds. No guarding, no rebound.No CVA tenderness EXTREMITIES: Normal range of motion, no edema NEUROLOGICAL: No facial assymetry, Normal speech, moving all 4 extremities spontaneously and symmetrically SKIN: Warm, Dry, normal turgor, chronic venous changes in RLE <Zenaida Ramírez - Last Filed: 08/19/16 15:29> - Vital Signs Last Vital Signs Temp Pulse Resp BP Pulse Ox 98.4 F 87 18 155/85 100 08/19/16 11:58 08/19/16 11:58 08/19/16 11:58 08/19/16 11:58 08/19/16 11:58 <Willy Smith - Last Filed: 08/20/16 09:35> ED Treatment Course - LABORATORY CBC & Chemistry Diagram: 08/19/16 12:28 08/19/16 12:28 - ADDITIONAL ORDERS Additional order review: Laboratory Results 08/19/16 12:28 Sodium 140 Potassium 4.6 Chloride 105 Carbon Dioxide 26 Anion Gap 9 BUN 35 H D Creatinine 2.1 H Creat Clearance w eGFR 30.09 Random Glucose 94 Calcium 10.1 Magnesium 2.3 Total Bilirubin 0.5 D AST 69 H D ALT 169 H D Alkaline Phosphatase 153 H Total Protein 6.9 D Albumin 3.2 L D 08/19/16 12:28 RBC 3.64 L MCV 97.2 H MCHC 33.5 RDW 16.5 H MPV 7.0 L D Neutrophils % 73.0 Lymphocytes % 17.0 D Monocytes % 8.0 Eosinophils % 2.0 - RADIOLOGY Radiograph Interpretation: 08/19/16 14:23 EXAM: RAD/CHEST X-RAY PORTABLE IMPRESSION: Frontal view of the chest is provided. Prior study is dated August 16 for comparison. Weak inspiratory effort is again noted which exaggerates cardiomediastinal silhouette and vascular perihilar lung markings. There is mild relative increased density in the right upper lobe or infiltrate cannot be excluded. No pleural effusion is seen. There are degenerative changes of the spine. <Zenaida Ramírez - Last Filed: 08/19/16 15:29> - LABORATORY CBC & Chemistry Diagram: 08/19/16 12:28 08/19/16 12:28 <Willy Smith - Last Filed: 08/20/16 09:35> Medical Decision Making - Medical Decision Making 08/19/16 14:24 Call was placed to Dr[address] Alfonso Pa. Case was discussed. Will page Dr. Kayleen Bello 08/19/16 14:[address] Kayleen Bello. Awaiting response. At 14:42, response by Dr. Kayleen Bello. Case was discussed. <Zenaida Ramírez - Last Filed: 08/19/16 15:29> - Medical Decision Making 08/19/16 12:10 85y M hx of ckd, cva, htn, HL, anemia, sent from [facility] for evaluation of hyperkalemia - the pt had lab work yesterday that showed K of 6.2 The pt denies any complaints. pt noted to have scant intermittent rales at the R base ekg without peaked Ts or interval widening. will ck labs, ekg, cardiac monitr, cxr A portion of this note was documented by scribe services under my direction. I have reviewed the details of the note, within reason, and agree with the documentation with the following case summary and management plan written by me 08/19/16 14:39 ptoassium normal labs improved from discharge case d/w dr. bello agree with discharge back to [place] for further care. return precautions were discussed I discussed the physical exam findings, ancillary test results and final diagnoses with the patient. I answered all of the patient's questions. The patient was satisfied with the care received and felt comfortable with the discharge plan and treatment plan. The patient will call their primary care physician within 24 hours to arrange follow-up and will return to the Emergency Department with any new, persistent or worsening symptoms. <Willy Smith - Last Filed: 08/20/16 09:35> *DC/Admit/Observation/Transfer - Attestations Scribe Attestion: 08/19/16 14:23 Documentation prepared by Zenaida Ramírez, acting as medical assistant instructor for Willy Smith MD. <Zenaida Ramírez - Last Filed: 08/19/16 15:29> - Discharge Dispostion Admit: No <Willy Smith - Last Filed: 08/20/16 09:35> Diagnosis at time of Disposition: CKD (chronic kidney disease) Qualifiers: Chronic kidney disease stage: unspecified stage Qualified Code(s): N18.9 - Chronic kidney disease, unspecified - Discharge Dispostion Disposition: [facility] FACILITY Condition at time of disposition: Improved - Referrals Referrals: Kayleen Bello MD [Staff Physician] - - Patient Instructions Printed Discharge Instructions: Chronic Renal Failure Additional Instructions: Return to the emergency department immediately with ANY new, persistent or worsening symptoms. You MUST call and follow up with your doctor tomorrow for further evaluation of your symptoms. Results were discussed with you. Please make sure your doctor reviews the results of your emergency evaluation. If you had any xrays during your visit, it was read preliminarily by myself, a Radiologist will review it and if there are any additional findings we will call you.
[2016-08-19 12:32] LABS: WHITE BLOOD COUNT 6.6 K/mm3 (4.0-10.0)
[2016-08-19 12:36] LABS: MCH 32.6 pg (25.7-33.7); MCHC 33.5 g/dl (32.0-35.9); MEAN CELL VOLUME 97.2 fl (80-96); PLATELET COUNT 313 K/MM3 (134-434); RDW 16.5 % (11.9-15.9)
[2016-08-19 12:59] LABS: ALBUMIN 3.2 g/dl (3.4-5.0); BILIRUBIN,TOTAL 0.5 mg/dL (0.2-1.0); CALCIUM 10.1 mg/dL (8.5-10.1); CREATININE 2.1 mg/dL (0.7-1.3); MAGNESIUM 2.3 mg/dL (1.8-2.4); TOT PROT 6.9 g/dl (6.4-8.2)
[2016-08-19 13:58] LABS: ANISOCYTOSIS 1+; PLATELET ESTIMATE ADEQUATE (NORMAL); POLYCHROMASIA FEW
[2016-08-19 15:42] VITALS: BP 126/78; PULSE 78
--- NOTE | 2016-08-19 15:46 | EKG ---
Test Reason : Blood Pressure : / mmHG Vent. Rate : 087 BPM Atrial Rate : 087 BPM P-R Int : 212 ms QRS Dur : 080 ms QT Int : 364 ms P-R-T Axes : 038 -22 039 degrees QTc Int : 438 ms SINUS RHYTHM WITH 1ST DEGREE A-V BLOCK OTHERWISE NORMAL ECG WHEN COMPARED WITH ECG OF 12-AUG-2016 18:14, DE INTERVAL HAS INCREASED Confirmed by AMADOU LOCO MD ([id number]) on 08/19/2016 3:46:06 PM Referred By: Confirmed By:AMADOU LOCO MD
== END 2016-08-19 15:00 ==
LOC: JER 11:29
DX: N18.9 Chronic kidney disease, unspecified (principal); Z86.73 Personal history of transient ischemic attack (TIA), and cerebral infarction without residual deficits; I10 Essential (primary) hypertension; E78.00 Pure hypercholesterolemia, unspecified
CPT/HCPCS: 36415; 71010-TC; 80053; 83735; 85025; 93005; 93010; 99284-25

== ENCOUNTER 2017-02-27 11:46 | Emergency (ER) | payer OTHER, BC ==
[2017-02-27 12:33] VITALS: BP 138/75; PULSE 20; TEMP 98.4; BMI 28.3
--- NOTE | 2017-02-27 12:36 | PDOC ---
History of Present Illness <Mau Jeter - Last Filed: 02/27/17 13:06> - General History Source: Patient Exam Limitations: No Limitations - History of Present Illness Initial Comments: 02/27/17 13:10 The patient is an 86 year old male with past medical history of hypertension, hyperlipidemia, CVA, and CKD who presents to the ED with complaints of rash over his forehead for the past four days. He also reports that beginning at the same time, his right eye began to become itchy, red, and crusty, but denies any pain to the area. He denies any other complaints. He denies any fever, chills, nausea, vomiting, diarrhea, cough, SOB, CP, or urinary symptoms. <Matilde Mansfield - Last Filed: 02/27/17 13:14> - General Chief Complaint: Rash Stated Complaint: R/O RIGHT EYE INFECTION Time Seen by Provider: 02/27/17 12:17 Past History - Past Medical History Anemia: Yes CVA: Yes Disorders: Yes (Chronic Kidney Disease) HTN: Yes Hypercholesterolemia: Yes - Psycho/Social/Smoking Cessation Hx Anxiety: No Suicidal Ideation: No Smoking History: Unknown if ever smoked Information on smoking cessation initiated: No Hx Alcohol Use: No Drug/Substance Use Hx: No Substance Use Type: None <Mau Jeter - Last Filed: 02/27/17 13:06> <Matilde Mansfield - Last Filed: 02/27/17 13:14> - Past Medical History Allergies/Adverse Reactions: Allergies Allergy/AdvReac Type Severity Reaction Status Date / Time Penicillins Allergy Verified 08/12/16 18:09 Home Medications: Ambulatory Orders Acetaminophen 650 mg PO Q6H PRN 08/12/16 Albuterol Sulfate 0.5% [Ventolin 0.5% Nebulizing Soln. -] 1 neb IH Q4H 08/12/16 Amlodipine Besylate [Norvasc -] 5 mg PO DAILY 08/12/16 Aspirin [ASA -] 81 mg PO DAILY 08/12/16 Atorvastatin Ca [Lipitor] 20 mg PO HS 08/12/16 Clopidogrel Bisulfate [Plavix -] 75 mg PO DAILY 08/12/16 Febuxostat [Uloric -] 40 mg PO DAILY 08/12/16 Guaifenesin [Guaifenesin ER] 600 mg PO Q12H 08/12/16 Loratadine 10 mg PO DAILY 08/12/16 Tamsulosin HCl [Flomax] 0.4 mg PO DAILY 08/12/16 Nystatin Cream [Mycostatin Cream -] 1 applic TP BID applic 08/17/16 Nystatin Oral Suspension - [Nystatin Oral Susp 175474 Units/5 ML -] 500,000 units PO Q6HPO cup 08/17/16 Acyclovir [Zovirax -] 800 mg PO 5XD #35 tablet 02/27/17 Ondansetron [Zofran *Odt*] 8 mg SL TID #30 od.tablet 02/27/17 Oxycodone HCl/Acetaminophen [Percocet 5-325 mg Tablet] 1 tab PO Q6H #20 tablet MDD 6 02/27/17 Tobramycin 0.3% Ophth Soln [Tobrex Ophthalmic Solution -] 2 drop OD QID #5 ml Tobramycin 0.3% Ophth Soln [Tobrex Ophthalmic Solution -] 2 drop OD QID #5 ml Review of Systems - Review of Systems Able to Perform ROS?: Yes Comments:: 02/27/17 13:11 GENERAL/CONSTITUTIONAL: No fever or chills. No weakness. HEAD, EYES, EARS, NOSE AND THROAT: No change in vision. No ear pain or discharge. No sore throat. CARDIOVASCULAR: No chest pain or shortness of breath. RESPIRATORY: No cough, wheezing, or hemoptysis. GASTROINTESTINAL: No nausea, vomiting, diarrhea or constipation. GENITOURINARY: No dysuria, frequency, or change in urination. MUSCULOSKELETAL: No joint or muscle swelling or pain. No neck or back pain. SKIN: Present: rash on forehead NEUROLOGIC: No headache, vertigo, loss of consciousness, or change in strength/ sensation. ENDOCRINE: No increased thirst. No abnormal weight change. HEMATOLOGIC/LYMPHATIC: No anemia, easy bleeding, or history of blood clots. ALLERGIC/IMMUNOLOGIC: No hives or skin allergy. All Other Systems: Reviewed and Negative <Matilde Mansfield - Last Filed: 02/27/17 13:14> *Physical Exam - Vital Signs Last Vital Signs Temp Pulse Resp BP Pulse Ox 98.4 F 20 L 65 H 138/75 97 02/27/17 12:29 02/27/17 12:29 02/27/17 12:29 02/27/17 12:29 02/27/17 12:29 <Mau Jeter - Last Filed: 02/27/17 13:06> - Vital Signs Last Vital Signs Temp Pulse Resp BP Pulse Ox 98.4 F 20 L 65 H 138/75 97 02/27/17 12:29 02/27/17 12:29 02/27/17 12:29 02/27/17 12:29 02/27/17 12:29 - Physical Exam Comments: 02/27/17 13:12 GENERAL: Awake, alert, and fully oriented, in no acute distress HEAD: No signs of trauma EYES: PERRLA, EOMI, sclera anicteric, conjunctiva clear. Mucal point discharge from eye, no corneal lesion or ulcers ENT: Auricles normal inspection, hearing grossly normal, nares patent, oropharynx clear without exudates. Moist mucosa NECK: Normal ROM, supple, no lymphadenopathy, JVD, or masses LUNGS: Breath sounds equal, clear to auscultation bilaterally. No wheezes, and no crackles HEART: Regular rate and rhythm, normal S1 and S2, no murmurs, rubs or gallops ABDOMEN: Soft, nontender, normoactive bowel sounds. No guarding, no rebound. No masses EXTREMITIES: Normal range of motion, no edema. No clubbing or cyanosis. No cords, erythema, or tenderness NEUROLOGICAL: Cranial nerves II through XII grossly intact. Normal speech, normal gait SKIN: Warm, Dry, normal turgor.Shingles rash on lower portion of forehead that extends over the right ear. <Matilde Mansfield - Last Filed: 02/27/17 13:14> ED Treatment Course - Medications Given in the ED: ED Medications Discontinued Medications Generic Name Dose Route Start Last Admin Trade Name Freq PRN Reason Stop Dose Admin Fluorescein Sodium 1 ea 02/27/17 12:41 02/27/17 12:50 Fluorets - OD 02/27/17 12:42 1 ea ONCE ONE Administration Tetracaine HCl 1 drop 02/27/17 12:41 02/27/17 12:45 Pontocaine OD 02/27/17 12:42 1 drop ONCE ONE Administration <Matilde Mansfield - Last Filed: 02/27/17 13:14> *DC/Admit/Observation/Transfer - Discharge Dispostion Admit: No <Mau Jeter - Last Filed: 02/27/17 13:06> - Attestations Scribe Attestion: 02/27/17 13:13 Documentation prepared by Matilde Mansfield, acting as medical communication specialist for Mau Jeter DO. 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 - Prescriptions Prescriptions: Oxycodone HCl/Acetaminophen [Percocet 5-325 mg Tablet] 1 tab PO Q6H #20 tablet MDD 6 Tobramycin 0.3% Ophth Soln [Tobrex Ophthalmic Solution -] 2 drop OD QID #5 ml Tobramycin 0.3% Ophth Soln [Tobrex Ophthalmic Solution -] 2 drop OD QID #5 ml Ondansetron [Zofran *Odt*] 8 mg SL TID #30 od.tablet Acyclovir [Zovirax -] 800 mg PO 5XD #35 tablet - Referrals Referrals: Linus Ricks [Staff Physician] - - Patient Instructions Printed Discharge Instructions: DI for Shingles, Shingles Additional Instructions: Mr Ahmadi needs to see an Ophthalomologist as soon as possible.l I do not believe that the eye itself is involved. Tobramycin drops to the eye. Percocet for Pain which will upset his stomach and cause nausea --- that is what the zofran is for. ZOVIRAZX is actually to treat the shingles. Return to us if any problems.
[2017-02-27] MEDS ORDERED: TETRACAINE 0.5% OPHTH SOLN 2 ML BOTTLE ONE (12:40)
[2017-02-27] MEDS ORDERED: TETRACAINE 0.5% OPHTH SOLN 2 ML BOTTLE OD ONE (12:41)
[2017-02-27] MEDS ORDERED: FLUORESCEIN NA 1 EA STRIP OD ONE (12:41)
[2017-02-27] MEDS ORDERED: FLUORESCEIN NA 1 EA STRIP ONE (12:44)
[2017-02-27] MEDS ORDERED: ACYCLOVIR 400 MG TABLET PO ONE (12:47)
[2017-02-27] MEDS ORDERED: TOBRAMYCIN 0.3% OPHTH SOLN 5 ML BOTTLE OD ONE (12:49)
[2017-02-27] MEDS ORDERED: TOBRAMYCIN 0.3% OPHTH SOLN 5 ML BOTTLE ONE (13:10)
[2017-02-27] MEDS ORDERED: ACYCLOVIR 200 MG CAPSULE ONE (13:10)
== END 2017-02-27 14:06 ==
LOC: JER 11:46
DX: B02.33 Zoster keratitis (principal); I12.9 Hypertensive chronic kidney disease with stage 1 through stage 4 chronic kidney disease, or unspecified chronic kidney disease; N18.9 Chronic kidney disease, unspecified; E78.00 Pure hypercholesterolemia, unspecified; Z86.69 Personal history of other diseases of the nervous system and sense organs
CPT/HCPCS: 99281-25